=== PATIENT | female | born 1955 | race Caucasian/White ===

== ENCOUNTER 2023-03-11 10:59 | Outpatient (OUT) | payer MEDICARE, MEDICAID, SELFPAY ==
[2023-03-11 11:31] LABS: Basophils Absolute Auto 0.1 10^3/uL (0.0-0.1); Basophils Percent Auto 1.8 % (0.2-2.0); Eosinophils Absolute Auto 0.2 10^3/uL (0.0-0.7); Eosinophils Percent Auto 3.6 % (0.9-7.0); Hematocrit 41.5 % (36.0-48.0); Hemoglobin 13.2 g/dL (12.0-16.0); Immature Granulocytes Abs Auto 0.01 10^3/uL (0.00-0.03); Immature Granulocytes Pct Auto 0.2 % (0.0-0.5); Lymphocytes Absolute Auto 1.4 10^3/uL (1.2-3.8); Lymphocytes Percent Auto 27.4 % (20.5-60.0); Mean Corpuscular HGB Conc 31.8 g/dL (29.9-35.2); Mean Corpuscular Hemoglobin 29.9 pg (26.7-34.0); Mean Corpuscular Volume 93.9 fL (81.0-99.0); Mean Platelet Volume 9.5 fL (9.5-13.5); Monocytes Absolute Auto 0.4 10^3/uL (0.3-0.8); Monocytes Percent Auto 7.7 % (1.7-12.0); Neutrophils Absolute Auto 2.9 10^3/uL (1.4-6.5); Neutrophils Percent Auto 59.3 % (43.0-75.0); Platelet Count 275 10^3/uL (150-450); Red Blood Count 4.42 10^6/uL (4.20-5.40); Red Cell Distribution Width 12.8 % (11.0-15.0)
[2023-03-11 13:57] LABS: Estimated Average Glucose 105 mg/dL; Glycohemoglobin A1C 5.3 % (4.5-6.2)
[2023-03-11 14:18] LABS: Alanine Aminotransferase 15 U/L (14-59); Albumin Globulin Ratio 0.9; Albumin Level 3.8 g/dL (3.4-5.0); Alkaline Phosphatase 48 U/L (46-116); Anion Gap 14.5; Aspartate Amino Transferase 9 U/L (15-37); BUN Creatinine Ratio 17.2; Bilirubin Total 0.7 mg/dL (0.2-1.0); Calcium 9.1 mg/dL (8.5-10.1); Carbon Dioxide 27.7 mmol/L (21.0-32.0); Chloride 102 mmol/L (98-107); Chol HDL Ratio 4.8; Cholesterol 255 mg/dL (<=200); Estimated GFR (African America >60 (>=60); Estimated GFR (Non-African Ame >60 (>=60); Free T3 2.72 pg/mL (2.18-3.98); Globulin 4.1 g/dL; Glucose 102 mg/dL (74-106); HDL Cholesterol 53 mg/dL (40-60); Potassium 4.2 mmol/L (3.5-5.1); Sodium 140 mmol/L (136-145); Thyroid Stimulating Hormone 4.487 uIU/mL (0.358-3.740); Total Protein 7.9 g/dL (6.4-8.2); Triglycerides 183 mg/dL (<=150); VLDL CHOLESTEROL 36.6 mg/dL
== END 2023-03-11 11:00 | disposition home or self-care (01) ==
LOC: LAB 10:59
PROVIDERS: PCP Family Medicine; Visit Provider Family Medicine
DX: E03.9 Hypothyroidism, unspecified (principal); E78.5 Hyperlipidemia, unspecified; I10 Essential (primary) hypertension; R73.09 Other abnormal glucose; Z12.12 Encounter for screening for malignant neoplasm of rectum; D64.9 Anemia, unspecified; E55.9 Vitamin D deficiency, unspecified
CPT/HCPCS: 36415; 80053; 80061; 82306; 83036; 83525; 83540; 84436; 84443; 84481; 85025

== ENCOUNTER 2023-03-11 13:54 | Outpatient (OUT) | payer MEDICARE, MEDICAID, SELFPAY ==
--- NOTE | 2023-03-11 | MM_ITS ---
Patient Name: AKUA PEREZ MR#: [id number] : 1955 Exam Date: 03/11/2023 Ordering Doctor: DR Tahir Menjivar . RADIOLOGY REPORT PROCEDURE: MM TOMOSYNTHESIS SCREENING BI COMPARISON: MG MAMM SCREEN 3D BEBETO CAD, 04/02/2021. MG MAMM SCREEN BEBETO W CAD, 01/26/2020. MG MAMM SCREEN BEBETO W CAD, 07/17/2018. MAMMO BEBETO SCREEN, 06/22/2003. INDICATIONS: Screening for malignant neoplasm Calculator Name NCI Breast Cancer Risk Assessment Tool 5 Year Breast Cancer Risk 1.60% Lifetime Breast Cancer Risk 5.70% Personal Breast Cancer No Personal Ovarian Cancer No Treatments None Family Cancers None LOCATION: [facility] BREAST COMPOSITION: Heterogeneously dense,which may obscure small masses. FINDINGS: DIAGNOSTIC CATEGORY 2--BENIGN FINDING: RIGHT BREAST: No significant suspicious finding. Scattered benign-appearing calcifications are present. Stable chronic asymmetries. No significant change has occurred. LEFT BREAST: No significant suspicious finding. Scattered benign-appearing calcifications are present. Stable chronic asymmetries. No significant change has occurred. RECOMMENDATIONS: ROUTINE MAMMOGRAM AND CLINICAL EVALUATION IN 12 MONTHS. PLEASE NOTE: A NORMAL MAMMOGRAM DOES NOT EXCLUDE THE POSSIBILITY OF BREAST CANCER. A CLINICALLY SUSPICIOUS PALPABLE LUMP SHOULD BE BIOPSIED. Dictated by: Nestor Gomez M.D. on 03/12/2023 at 13:50 Approved by: Nestor Gomez M.D. on 03/12/2023 at 13:54
== END 2023-03-11 13:55 | disposition home or self-care (01) ==
LOC: MAMMO 13:54
PROVIDERS: PCP Family Medicine; Visit Provider Family Medicine
DX: Z12.31 Encounter for screening mammogram for malignant neoplasm of breast (principal)
CPT/HCPCS: 77063; 77067

== ENCOUNTER 2024-03-02 10:40 | Outpatient (OUT) | payer MEDICARE, SELFPAY ==
[2024-03-02 11:05] LABS: Basophils Absolute Auto 0.1 10^3/uL (0.0-0.1); Basophils Percent Auto 1.6 % (0.2-2.0); Eosinophils Absolute Auto 0.1 10^3/uL (0.0-0.7); Eosinophils Percent Auto 2.1 % (0.9-7.0); Hemoglobin 11.7 g/dL (12.0-16.0); Immature Granulocytes Abs Auto 0.02 10^3/uL (0.00-0.03); Immature Granulocytes Pct Auto 0.3 % (0.0-0.5); Lymphocytes Absolute Auto 1.3 10^3/uL (1.2-3.8); Lymphocytes Percent Auto 20.3 % (20.5-60.0); Mean Corpuscular HGB Conc 29.3 g/dL (29.9-35.2); Mean Corpuscular Hemoglobin 23.6 pg (26.7-34.0); Mean Corpuscular Volume 80.8 fL (81.0-99.0); Mean Platelet Volume 8.2 fL (9.5-13.5); Monocytes Absolute Auto 0.5 10^3/uL (0.3-0.8); Monocytes Percent Auto 7.1 % (1.7-12.0); Neutrophils Absolute Auto 4.3 10^3/uL (1.4-6.5); Neutrophils Percent Auto 68.6 % (43.0-75.0); Platelet Count 416 10^3/uL (150-450); Red Blood Count 4.95 10^6/uL (4.20-5.40); Red Cell Distribution Width 16.7 % (11.0-15.0); White Blood Count 6.3 10^3/uL (4.0-11.0)
[2024-03-02 11:43] LABS: Estimated Average Glucose 108 mg/dL; Glycohemoglobin A1C 5.4 % (4.5-6.2)
[2024-03-02 12:43] LABS: Alanine Aminotransferase 10 U/L (14-59); Albumin Globulin Ratio 0.5; Albumin Level 2.9 g/dL (3.4-5.0); Alkaline Phosphatase 70 U/L (46-116); Anion Gap 16.9; Aspartate Amino Transferase 11 U/L (15-37); Bilirubin Total 0.7 mg/dL (0.2-1.0); Calcium 9.6 mg/dL (8.5-10.1); Carbon Dioxide 26.3 mmol/L (21.0-32.0); Chloride 102 mmol/L (98-107); Chol HDL Ratio 3.6; Cholesterol 181 mg/dL (<=200); Estimated GFR (African America >60 (>=60 mL/min/1.73m^2); Estimated GFR (Non-African Ame 50 (>=60 mL/min/1.73m^2); Free T3 1.69 pg/mL (2.18-3.98); Globulin 5.5 g/dL; Glucose 99 mg/dL (74-106); HDL Cholesterol 50 mg/dL (40-60); Potassium 4.2 mmol/L (3.5-5.1); Sodium 141 mmol/L (136-145); Thyroid Stimulating Hormone 1.647 uIU/mL (0.358-3.740); Total Protein 8.4 g/dL (6.4-8.2); Triglycerides 75 mg/dL (<=150)
== END 2024-03-02 10:41 | disposition home or self-care (01) ==
LOC: LAB 10:41
PROVIDERS: PCP Family Medicine; Visit Provider Family Medicine
DX: E03.9 Hypothyroidism, unspecified (principal); E78.5 Hyperlipidemia, unspecified; I10 Essential (primary) hypertension; E55.9 Vitamin D deficiency, unspecified; R73.09 Other abnormal glucose; Z12.12 Encounter for screening for malignant neoplasm of rectum; D64.9 Anemia, unspecified
CPT/HCPCS: 36415; 80053; 80061; 82306; 83036; 83540; 83735; 84436; 84443; 84481; 85025

== ENCOUNTER 2024-03-12 09:51 | Outpatient (OUT) | payer MEDICARE, SELFPAY ==
--- NOTE | 2024-03-12 09:54 | MM_ITS ---
Patient Name: AKUA PEREZ MR#: [id number] : 1955 Exam Date: 03/12/2024 Ordering Doctor: DR Tahir Menjivar . RADIOLOGY REPORT PROCEDURE: MM TOMOSYNTHESIS SCREENING BI COMPARISON: MM TOMOSYNTHESIS SCREENING BI, 03/11/2023. MG MAMM SCREEN 3D BEBETO CAD, 04/02/2021. MG MAMM SCREEN BEBETO W CAD, 01/26/2020. MAMMO BEBETO SCREEN, 06/22/2003. INDICATIONS: Screening Calculator Name NCI Breast Cancer Risk Assessment Tool 5 Year Breast Cancer Risk 4.10% Lifetime Breast Cancer Risk 13.50% Personal Breast Cancer No Personal Ovarian Cancer No Treatments None Family Cancers Sister with breast cancer at age 57. LOCATION: [facility] BREAST COMPOSITION: The breasts are heterogeneously dense,which may obscure small masses. FINDINGS: DIAGNOSTIC CATEGORY 2--BENIGN FINDING: RIGHT BREAST: No significant suspicious finding. Scattered benign-appearing calcifications are present. No significant change has occurred. LEFT BREAST: No significant suspicious finding. Scattered benign-appearing calcifications are present. No significant change has occurred. RECOMMENDATIONS: ROUTINE MAMMOGRAM AND CLINICAL EVALUATION IN 12 MONTHS. PLEASE NOTE: A NORMAL MAMMOGRAM DOES NOT EXCLUDE THE POSSIBILITY OF BREAST CANCER. A CLINICALLY SUSPICIOUS PALPABLE LUMP SHOULD BE BIOPSIED. Dictated by: Nestor Gomez M.D. on 03/12/2024 at 12:00 Approved by: Nestor Gomez M.D. on 03/12/2024 at 12:04
--- OUTSIDE RECORDS SUMMARY | 2024-03-12 10:07 | XMS_ITS | CCD ---
Author Organization [facility] Care Team Providers Care Cleaning Porter Name Role Phone DR CARLA NESBITT Consulting Unavailable DELICIA, DR AGUIRRE Primary Care Unavailable DELICIA, DR AGUIRRE Admitting Unavailable DELICIA, DR AGUIRRE Attending Unavailable WEST, DR RUPA Lux Consulting Unavailable DELICIA, DR AGUIRRE Consulting Unavailable DELICIA, DR AGUIRRE Primary Care Unavailable DELICIA, DR AGUIRRE Admitting Unavailable DELICIA, DR AGUIRRE Attending Unavailable Problems Problem Classification Problem Date Documented Da te Episodic/Chronic Acute bronchitis (1 source) Acute bronchitis, unspecified; Translations: [ACUTE BRONCHITIS UNSPECIFIED] Onset: 03-04-2022 Episodic Deficiency and other anemia (1 source) Anemia, unspecified; Translations: [ANEMIA UNSPECIFIED] Onset: 03-04-2022 Episodic Diabetes mellitus without complication (1 source) Other abnormal glucose; Translations: [OTHER ABNORMAL GLUCOSE] Onset: 03-04-2022 Episodic Disorders of lipid metabolism (1 source) Hyperlipidemia, unspecified; Translations: [HYPERLIPIDEMIA UNSPECIFIED] Onset: 03-04-2022 Chronic Essential hypertension (1 source) Essential (primary) hypertension; Translations: [ESSENTIAL PRIMARY HYPERTENSION] Onset: 03-04-2022 Chronic Nutritional deficiencies (1 source) Vitamin D deficiency, unspecified; Translations: [VITAMIN D DEFICIENCY UNSPECIFIED] Onset: 03-04-2022 Chronic Other screening for suspected conditions (not mental disorders or infectious disease) (5 sources) Encounter for screening for malignant neoplasm of rectum; Translations: [Encounter for screening mammogram for malignant neoplasm of breast] Onset: 04-02-2021 Episodic Thyroid disorders (4 sources) Hypothyroidism, unspecified; Translations: [HYPOTHYROIDISM UNSPECIFIED] Onset: 02-27-2022 Chronic Results Test Name Value Interpretation Reference Range Facility INSULINon 02-28-2022 Insulin 8.4 uIU/mL Normal 2.6-24.9 [facility] Comment on above: Performed By: #### I NSULIN #### [facility] [address] [address] [address] Abraham Harris CBC AUTO DIFFon 02-27-2022 BASO # 0.1 103/ul Normal 0.0-0.1 [facility] Comment on above: Performed By: #### C BC #### [facility] [address] [place] [address] Dr. Abraham Harris Basophils/100 WBC (Bld) 1.7 % Normal 0.2-2.0 [facility] Comment on above: Performed By: #### C BC #### [facility] [address] [place] [address] Dr. Abraham Harris EO # 0.2 103/ul Normal 0.0-0.7 [facility] Comment on above: Performed By: #### C BC #### [facility] [address] [place] [address] Dr. Abraham Harris Eosinophils/100 WBC (Bld) 3.1 % Normal 0.9-7.0 [facility] Comment on above: Performed By: #### C BC #### [facility] [address] [place] [address] Dr. Abraham Harris Erythrocyte distribution width (RBC) [Ratio] 12.9 % Normal 11.0-15.0 [facility] Comment on above: Performed By: #### C BC #### [facility] [address] [place] [address] Dr. Abraham Harris Hematocrit (Bld) [Volume fraction] 42.3 % Normal 36.0-48.0 [facility] Comment on above: Performed By: #### C BC #### [facility] [address] [place] [address] Dr. Abraham Harris Hemoglobin (Bld) [Mass/Vol] 13.8 g/dL Normal 12.0-16.0 [facility] Comment on above: Performed By: #### C BC #### [facility] [address] [place] [address] Dr. Abraham Harris IG # 0.02 10e3/ul Normal 0.00-0.03 [facility] Comment on above: Performed By: #### C BC #### [facility] [address] [place] [address] Dr. Abraham Harris IG % 0.4 % Normal 0.0-0.5 [facility] Comment on above: Performed By: #### C BC #### [facility] [address] [place] [address] Dr. Abraham Harris LYMPH # 1.3 103/ul Normal 1.2-3.8 [facility] Comment on above: Performed By: #### C BC #### [facility] [address] [place] [address] Dr. Abraham Harris Lymphocytes/100 WBC (Bld) 25.2 % Normal 20.5-60.0 [facility] Comment on above: Performed By: #### C BC #### [facility] [address] [place] [address] Dr. Abraham Harris MANUAL DIFF REQ NO Normal [facility] Comment on above: Performed By: #### C BC #### [facility] [address] [place] [address] Dr. Abraham Harris MCH (RBC) [Entitic mass] 29.6 pg Normal 26.7-34.0 [facility] Comment on above: Performed By: #### C BC #### [facility] [address] [place] [address] Dr. Abraham Harris MCHC (RBC) [Mass/Vol] 32.6 g/dL Normal 29.9-35.2 [facility] Comment on above: Performed By: #### C BC #### [facility] [address] [place] [address] Dr. Abraham Harris MCV (RBC) [Entitic vol] 90.8 fL Normal 81.0-99.0 [facility] Comment on above: Performed By: #### C BC #### [facility] [address] [place] [address] Dr. Abraham Harris MONO # 0.3 103/ul Normal 0.3-0.8 [facility] Comment on above: Performed By: #### C BC #### [facility] [address] [place] [address] Dr. Abraham Harris Monocytes/100 WBC (Bld) 5.0 % Normal 1.7-12.0 [facility] Comment on above: Performed By: #### C BC #### [facility] [address] [place] [address] Dr. Abraham Harris NEUT # 3.4 103/ul Normal 1.4-6.5 [facility] Comment on above: Performed By: #### C BC #### [facility] [address] [place] [address] Dr. Abraham Harris Neutrophils/100 WBC (Bld) 64.6 % Normal 43.0-75.0 [facility] Comment on above: Performed By: #### C BC #### [facility] [address] [place] [address] Dr. Abraham Harris Platelet mean volume (Bld) [Entitic vol] 9.9 fL Normal 9.5-13.5 [facility] Comment on above: Performed By: #### C BC #### [facility] [address] [place] [address] Dr. Abraham Harris PLT 229 103/ul Normal 150-450 [facility] Comment on above: Performed By: #### C BC #### [facility] [address] [place] [address] Dr. Abraham Harris RBC 4.66 106/ul Normal 4.20-5.40 [facility] Comment on above: Performed By: #### C BC #### [facility] [address] [place] [address] Dr. Abraham Harris WBC 5.2 103/ul Normal 4.0-11.0 [facility] Comment on above: Performed By: #### C BC #### [facility] [address] [place] [address] Dr. Abraham Harris FREE THYROXINE INDEX T7on FTI 3.64 Normal 1.30-4.50 [facility] Comment on above: Performed By: #### L IPID, CMP, TSH, T7 #### [facility] [address] [place] [address] Dr. Abraham Harris T3U 36.0 % Normal 30.0-39.0 [facility] Comment on above: Performed By: #### L IPID, CMP, TSH, T7 #### [facility] [address] [address] [address] Abraham Harris T4 [Mass/Vol] 10.10 ug/dL Normal 4.80-13.[address] [facility] Comment on above: Performed By: #### L IPID, CMP, TSH, T7 #### [facility] [address] [address] [address] Abraham Harris GLYCOHEMOGLOBIN A1Con 2021 ADA RECOMMENDATION SEE BELOW Normal [facility] Comment on above: Result Comment: ADA RECOMMENDED LIMIT 4.0 - 6.0 ADA THERAPEUTIC TARGET < 7.0 ACTION SUGGESTED > 7.0 Performed By: #### A 1C #### [facility] [address] [address] [address] Abraham Harris Glucose [Mass/Vol] 111 mg/dL Normal [facility] Comment on above: Performed By: #### A 1C #### [facility] [address] [address] [address] Abraham Harris HbA1c (Bld) [Mass fraction] 5.5 % Normal 4.5-6.2 [facility] Comment on above: Performed By: #### A 1C #### [facility] [address] [address] [address] Abraham Harris IRONon 02-27-2022 Iron [Mass/Vol] 82.0 ug/dL Normal 50.0-170.0 [facility] Comment on above: Performed By: #### I MARCELLUS VITAD #### [facility] [address] [address] [address] Abraham Harris LIPID PROFILEon 02-27-2022 CHOL-HDL RATIO NORM SEE BELOW Normal [facility] Comment on above: Result Comment: 3.3 - 4.4 LOW RISK 4.4 - 7.1 AVERAGE RISK 7.1 - 11.0 MODERATE RISK >11.0 HIGH RISK Performed By: #### L IPID, CMP, TSH, T7 #### [facility] [address] [address] [address] Abraham Harris Cholesterol [Mass/Vol] 271 mg/dL Critically high <=200 [facility] Comment on above: Performed By: #### L IPID, CMP, TSH, T7 #### [facility] [address] [address] [address] Abraham Harris Cholesterol in HDL [Mass/Vol] 65 mg/dL Critically high 40-60 [facility] Comment on above: Performed By: #### L IPID, CMP, TSH, T7 #### [facility] [address] [address] [address] Abraham Harris Cholesterol in LDL [Mass/Vol] 177.4 mg/dL Normal [facility] Comment on above: Performed By: #### L IPID, CMP, TSH, T7 #### [facility] [address] [address] [address] Abraham Harris Cholesterol.total/Cho lesterol in HDL [Mass ratio] 4.2 {ratio} Normal [facility] Comment on above: Performed By: #### L IPID, CMP, TSH, T7 #### [facility] [address] [address] [address] Abraham Harris HDL NORMAL > or = 60 mg/dl - LO W CARDIOVASCULAR RISK <40 mg/dl - HIGH CARDIOVASCULAR RISK Normal [facility] Comment on above: Performed By: #### L IPID, CMP, TSH, T7 #### [facility] [address] [address] [address] Abraham Harris LDL CALC NORMAL SEE BELOW Normal [facility] Comment on above: Result Comment: <100 mg/dl OPTIMAL 100 - 129 mg/dl NEAR OR ABOVE OPTIMAL 130 - 159 mg/dl BORDERLINE HIGH 160 - 189 mg/dl HIGH >190 mg/dl VERY HIGH Performed By: #### L IPID, CMP, TSH, T7 #### [facility] [address] [address] [address] Abraham Harris Triglyceride [Mass/Vol] 143 mg/dL Normal <=150 [facility] Comment on above: Performed By: #### L IPID, CMP, TSH, T7 #### [facility] [address] [place] [address] Dr. Abraham Harris VLDL CALC 28.6 mg/dL Normal [facility] Comment on above: Performed By: #### L IPID, CMP, TSH, T7 #### [facility] [address] [place] [address] Dr. Abarham Harris PROF 14(COMP METB)on 022 Albumin [Mass/Vol] 3.9 g/dL Normal 3.4-5.0 [facility] Comment on above: Performed By: #### L IPID, CMP, TSH, T7 #### [facility] [address] [place] [address] Dr. Abraham Harris Albumin/Globulin [Mass ratio] 1.0 {ratio} Normal [facility] Comment on above: Performed By: #### L IPID, CMP, TSH, T7 #### [facility] [address] [place] [address] Dr. Abraham Harris ALP [Catalytic activity/Vol] 46 U/L Normal 46-116 [facility] Comment on above: Performed By: #### L IPID, CMP, TSH, T7 #### [facility] [address] [place] [address] Dr. Abraham Harris ALT [Catalytic activity/Vol] 14 U/L Normal 14-59 [facility] Comment on above: Performed By: #### L IPID, CMP, TSH, T7 #### [facility] [address] [place] [address] Dr. Abraham Harris Anion gap [Moles/Vol] 11.3 mmol/L Normal [facility] Comment on above: Performed By: #### L IPID, CMP, TSH, T7 #### [facility] [address] [place] [address] Dr. Abraham Harris AST [Catalytic activity/Vol] 12 U/L Critically low 15-37 [facility] Comment on above: Performed By: #### L IPID, CMP, TSH, T7 #### [facility] [address] [place] [address] Dr. Abraham Harris Bilirubin [Mass/Vol] 1.0 mg/dL Normal 0.2-1.0 [facility] Comment on above: Performed By: #### L IPID, CMP, TSH, T7 #### [facility] [address] [address] [address] Abraham Harris Calcium [Mass/Vol] 9.4 mg/dL Normal 8.5-10.1 [facility] Comment on above: Performed By: #### L IPID, CMP, TSH, T7 #### [facility] [address] [place] [address] Dr. Abraham Harris Chloride [Moles/Vol] 105 mmol/L Normal 98-107 [facility] Comment on above: Performed By: #### L IPID, CMP, TSH, T7 #### [facility] [address] [place] [address] Dr. Abraham Harris CO2 [Moles/Vol] 28.0 mmol/L Normal 21.0-32.0 [facility] Comment on above: Performed By: #### L IPID, CMP, TSH, T7 #### [facility] [address] [place] [address] Dr. Abraham Harris Creatinine [Mass/Vol] 0.85 mg/dL Normal 0.55-1.02 [facility] Comment on above: Performed By: #### L IPID, CMP, TSH, T7 #### [facility] [address] [place] [address] Dr. Abraham Harris EGFR-AF CHADIAN >60 Normal >=60 [facility] Comment on above: Performed By: #### L IPID, CMP, TSH, T7 #### [facility] [address] [place] [address] Dr. Abraham Harris EGFR-NON AF CHADIAN >60 Normal >=60 [facility] Comment on above: Performed By: #### L IPID, CMP, TSH, T7 #### [facility] [address] [place] [address] Dr. Abraham Harris Globulin (S) [Mass/Vol] 4.0 g/dL Normal [facility] Comment on above: Performed By: #### L IPID, CMP, TSH, T7 #### [facility] [address] [place] [address] Dr. Abraham Harris Glucose [Mass/Vol] 106 mg/dL Normal 74-106 [facility] Comment on above: Performed By: #### L IPID, CMP, TSH, T7 #### [facility] [address] [place] [address] Dr. Abraham Harris Potassium [Moles/Vol] 4.3 mmol/L Normal 3.5-5.1 [facility] Comment on above: Performed By: #### L IPID, CMP, TSH, T7 #### [facility] [address] [place] [address] Dr. Abraham Harris Protein [Mass/Vol] 7.9 g/dL Normal 6.4-8.2 [facility] Comment on above: Performed By: #### L IPID, CMP, TSH, T7 #### [facility] [address] [place] [address] Dr. Abraham Harris Sodium [Moles/Vol] 140 mmol/L Normal 136-145 [facility] Comment on above: Performed By: #### L IPID, CMP, TSH, T7 #### [facility] [address] [place] [address] Dr. Abraham Harris Urea nitrogen [Mass/Vol] 13.0 mg/dL Normal 7.0-18.0 [facility] Comment on above: Performed By: #### L IPID, CMP, TSH, T7 #### [facility] [address] [place] [address] Dr. Abraham Harris Urea nitrogen/Creatinine [Mass ratio] 15.3 mg/mg Normal [facility] Comment on above: Performed By: #### L IPID, CMP, TSH, T7 #### [facility] [address] [place] [address] Dr. Abraham Harris TSHon 02-27-2022 TSH 2.006 uIU/mL Normal 0.358-3.740 [facility] Comment on above: Performed By: #### L IPID, CMP, TSH, T7 #### [facility] [address] [address] [address] Abraham Harris VITAMIN D 25 OHon 02-27-2022 VIT D 25-OH 69.8 ng/mL Normal [facility] Comment on above: Performed By: #### I MARCELLUS, VITAD #### [facility] [address] [place], [place] [address] Dr. Abraham Harris VIT D RANGES SEE BELOW Normal [facility] Comment on above: Result Comment: <20 ng/mL Vit D deficient 20 - <30 ng/mL Vit D insufficient 30 - 100 ng/mL Vit D sufficient >100 ng/mL Potential Toxicity Performed By: #### I MARCELLUS, VITAD #### [facility] [address] [address] [address] Abraham Harris MG MAMM SCREEN 3D BEBETO CADon 04-02-2021 MG MAMM SCREEN 3D BEBETO CAD Patient: AKUA PEREZ Exam Date: 04/02/2021 : 1955 Gender:F Ordering : DR CARLA NESBITT . Admission #: [id number] Family : Order #: [id number] CLICK HERE TO VIEW EXAM RADIOLOGY REPORT PROCEDURE: MAMMOGRAM SCREENING 3D BILATERAL CAD COMPARISON: MG MAMM SCREEN BEBETO W CAD, 01/26/2020. MG MAMM SCREEN BEBETO W CAD, 07/17/2018. INDICATIONS: Screening mammography Calculator Name NCI Breast Cancer Risk Assessment Tool 5 Year Breast Cancer Risk 1.50% Lifetime Breast Cancer Risk 6.10% Personal Breast Cancer No Personal Ovarian Cancer No Treatments None Family Cancers None LOCATION: [facility] BREAST COMPOSITION: Heterogeneously dense,which may obscure small masses. FINDINGS: DIAGNOSTIC CATEGORY 2--BENIGN FINDING. NO CHANGE FROM COMPARISON. Scattered benign-appearing calcifications are present. Scattered benign-appearing lymph nodes are present. RIGHT BREAST: No significant suspicious finding. Stable focal asymmetry upper outer quadrant. LEFT BREAST: No significant suspicious finding. RECOMMENDATIONS: ROUTINE MAMMOGRAM AND CLINICAL EVALUATION IN 12 MONTHS. PLEASE NOTE: A NORMAL MAMMOGRAM DOES NOT EXCLUDE THE POSSIBILITY OF BREAST CANCER. A CLINICALLY SUSPICIOUS PALPABLE LUMP SHOULD BE BIOPSIED. Dictated by: Rupa Yost MD on 04/02/2021 at 13:59 Approved by: Rupa Yost MD on 04/02/2021 at 14:01 Normal [facility] Encounters Encounter Date Encounter Type Care Provider Facility Start: 02-27-2022 End: 02-28-2022 ambulatory CARLA NESBITT Facility:[facility] Start: 04-02-2021 End: 04-03-[address] CARLA NESBITT Facility:[facility] Payers Date Payer Category Payer Medicaid [id number] 1958 Medicare [id number] 1958 Unknown [id number] 1955 Unknown [id number] 1955 Unknown [id number] Summary Purpose Family History No Family History Records Found Advance Directives No Advanced Directives Records Found Additional Source Comments INFORMATION SOURCE (unrecogn ized section and content) DATE CREATED AUTHOR 03/04/2022 [facility] FOR RECORDS PERTAINING TO PATIENTS WHO ARE OR HAVE BEEN ENROLLED IN A CHEMICAL DEPENDENCY/SUBSTANCEABUSE PROGRAM, SOME INFORMATION MAY BE OMITTED. This clinical summary was aggregated from multiple sources. Caution should be exercised in using it in the provision of clinical care. This summary normalizes information from multiple sources, and as a consequence, information in this document may materially change the coding, format and clinical context of patient data. In addition, data may be omitted in some cases. CLINICAL DECISIONS SHOULD BE BASED ON THE PRIMARY CLINICAL RECORDS. [facility] [employer] [facility]. provides no warranty or guarantee of the accuracy or completeness of information in this document.
== END 2024-03-12 09:52 | disposition home or self-care (01) ==
LOC: MAMMO 09:51
PROVIDERS: PCP Family Medicine; Visit Provider Family Medicine
DX: Z12.31 Encounter for screening mammogram for malignant neoplasm of breast (principal); Z80.3 Family history of malignant neoplasm of breast
CPT/HCPCS: 77063; 77067

== ENCOUNTER 2024-05-06 14:57 | Outpatient (REF) | payer MEDICARE, SELFPAY ==
--- OUTSIDE RECORDS SUMMARY | 2024-05-07 15:15 | XMS_ITS | CCD ---
Author Organization [facility] Care Team Providers Care Quantitative Software Engineer Name Role Phone DR CARLA NESBITT Consulting [...] 02-28-2022 Insulin 8.4 uIU/mL Normal 2.6-24.9 [facility] Comment on above: Performed By: #### I NSULIN #### [facility] [address] [address] [address] Abraham Harris CBC AUTO DIFFon 02-27-2022 BASO # 0.1 103/ul Normal 0.0-0.1 [facility] Comment on above: Performed By: #### C BC #### [facility] [address] [place] [address] Dr. Abraham Harris Basophils/100 WBC (Bld) 1.7 % Normal 0.2-2.0 [facility] Comment on above: Performed By: #### C BC #### [facility] [address] [place] [address] Dr. Abraham Harris EO # 0.2 103/ul Normal 0.0-0.7 [facility] Comment on above: Performed By: #### C BC #### [facility] [address] [place] [address] Dr. Abraham Harris Eosinophils/100 WBC (Bld) 3.1 % Normal 0.9-7.0 [facility] Comment on above: Performed By: #### C BC #### [facility] [address] [place] [address] Dr. Abraham Harris Erythrocyte distribution width (RBC) [Ratio] 12.9 % Normal 11.0-15.0 [facility] Comment on above: Performed By: #### C BC #### [facility] [address] [place] [address] Dr. Abraham Harris Hematocrit (Bld) [Volume fraction] 42.3 % Normal 36.0-48.0 [facility] Comment on above: Performed By: #### C BC #### [facility] [address] [place] [address] Dr. Abraham Harris Hemoglobin (Bld) [Mass/Vol] 13.8 g/dL Normal 12.0-16.0 [facility] Comment on above: Performed By: #### C BC #### [facility] [address] [place] [address] Dr. Arbaham Harris IG # 0.02 10e3/ul Normal 0.00-0.03 [facility] Comment on above: Performed By: #### C BC #### [facility] [address] [place] [address] Dr. Abraham Harris IG % 0.4 % Normal 0.0-0.5 [facility] Comment on above: Performed By: #### C BC #### [facility] [address] [place] [address] Dr. Abraham Harris LYMPH # 1.3 103/ul Normal 1.2-3.8 [facility] Comment on above: Performed By: #### C BC #### [facility] [address] [place] [address] Dr. Abraham Harris Lymphocytes/100 WBC (Bld) 25.2 % Normal 20.5-60.0 [facility] Comment on above: Performed By: #### C BC #### [facility] [address] [place] [address] Dr. Abraham Harris MANUAL DIFF REQ NO Normal [facility] Comment on above: Performed By: #### C BC #### [facility] [address] [place] [address] Dr. Abraham Harris MCH (RBC) [Entitic mass] 29.6 pg Normal 26.7-34.0 [facility] Comment on above: Performed By: #### C BC #### [facility] [address] [place] [address] Dr. Abraham Harris MCHC (RBC) [Mass/Vol] 32.6 g/dL Normal 29.9-35.2 [facility] Comment on above: Performed By: #### C BC #### [facility] [address] [place] [address] Dr. Abraham Harris MCV (RBC) [Entitic vol] 90.8 fL Normal 81.0-99.0 [facility] Comment on above: Performed By: #### C BC #### [facility] [address] [place] [address] Dr. Abraham Harris MONO # 0.3 103/ul Normal 0.3-0.8 [facility] Comment on above: Performed By: #### C BC #### [facility] [address] [place] [address] Dr. Abraham Harris Monocytes/100 WBC (Bld) 5.0 % Normal 1.7-12.0 [facility] Comment on above: Performed By: #### C BC #### [facility] [address] [place] [address] Dr. Abraham Harris NEUT # 3.4 103/ul Normal 1.4-6.5 [facility] Comment on above: Performed By: #### C BC #### [facility] [address] [place] [address] Dr. Abraham Harris Neutrophils/100 WBC (Bld) 64.6 % Normal 43.0-75.0 [facility] Comment on above: Performed By: #### C BC #### [facility] [address] [place] [address] Dr. Abraham Harris Platelet mean volume (Bld) [Entitic vol] 9.9 fL Normal 9.5-13.5 [facility] Comment on above: Performed By: #### C BC #### [facility] [address] [place] [address] Dr. Abraham Harris PLT 229 103/ul Normal 150-450 [facility] Comment on above: Performed By: #### C BC #### [facility] [address] [place] [address] Dr. Abraham Harris RBC 4.66 106/ul Normal 4.20-5.40 [facility] Comment on above: Performed By: #### C BC #### [facility] [address] [place] [address] Dr. Abraham Harris WBC 5.2 103/ul Normal 4.0-11.0 [facility] Comment on above: Performed By: #### C BC #### [facility] [address] [place] [address] Dr. Abraham Harris FREE THYROXINE INDEX T7on FTI 3.64 Normal 1.30-4.50 [facility] Comment on above: Performed By: #### L IPID, CMP, TSH, T7 #### [facility] [address] [place] [address] Dr. Abraham Harris T3U 36.0 % Normal 30.0-39.0 [facility] Comment on above: Performed By: #### L IPID, CMP, TSH, T7 #### [facility] [address] [address] [address] Abraham Harris T4 [Mass/Vol] 10.10 ug/dL Normal 4.80-13.90 [facility] Comment on above: Performed By: #### L IPID, CMP, TSH, T7 #### [facility] [address] [address] [address] Abraham Harris GLYCOHEMOGLOBIN A1Con 2021 ADA RECOMMENDATION SEE BELOW Normal [facility] Comment on above: Result Comment: ADA RECOMMENDED LIMIT 4.0 - 6.0 ADA THERAPEUTIC TARGET < 7.0 ACTION SUGGESTED > 7.0 Performed By: #### A 1C #### [facility] [address] [address] [address] Abraham Harris Glucose [Mass/Vol] 111 mg/dL Normal [facility] Comment on above: Performed By: #### A 1C #### [facility] [address] [address] [address] Abraham Harris HbA1c (Bld) [Mass fraction] 5.5 % Normal 4.5-6.2 [facility] Comment on above: Performed By: #### A 1C #### [facility] [address] [address] [address] Abraham Harris IRONon 02-27-2022 Iron [Mass/Vol] 82.0 ug/dL Normal 50.0-170.0 [facility] Comment on above: Performed By: #### I MARCELLUS VITAD #### [facility] [address] [address] [address] Abraham Harris LIPID PROFILEon 02-27-2022 CHOL-HDL RATIO NORM SEE BELOW Normal [facility] Comment on above: Result Comment: 3.3 - 4.4 LOW RISK 4.4 - 7.1 AVERAGE RISK 7.1 - 11.0 MODERATE RISK >11.0 HIGH RISK Performed By: #### L IPID, CMP, TSH, T7 #### [facility] [address] [address] [address] Abraham Harris Cholesterol [Mass/Vol] 271 mg/dL Critically high <=200 [facility] Comment on above: Performed By: #### L IPID, CMP, TSH, T7 #### [facility] [address] [address] [address] Abraham Harris Cholesterol in HDL [Mass/Vol] 65 mg/dL Critically high 40-60 [facility] Comment on above: Performed By: #### L IPID, CMP, TSH, T7 #### [facility] [address] [address] [address] Abraham Harris Cholesterol in LDL [Mass/Vol] 177.4 mg/dL Normal [facility] Comment on above: Performed By: #### L IPID, CMP, TSH, T7 #### [facility] [address] [address] [address] Abraham Harris Cholesterol.total/Cho lesterol in HDL [Mass ratio] 4.2 {ratio} Normal [facility] Comment on above: Performed By: #### L IPID, CMP, TSH, T7 #### [facility] [address] [address] [address] Abraham Harris HDL NORMAL > or = 60 mg/dl - LO W CARDIOVASCULAR RISK <40 mg/dl - HIGH CARDIOVASCULAR RISK Normal [facility] Comment on above: Performed By: #### L IPID, CMP, TSH, T7 #### [facility] [address] [address] [address] Abraham Harris LDL CALC NORMAL SEE BELOW Normal [facility] Comment on above: Result Comment: <100 mg/dl OPTIMAL 100 - 129 mg/dl NEAR OR ABOVE OPTIMAL 130 - 159 mg/dl BORDERLINE HIGH 160 - 189 mg/dl HIGH >190 mg/dl VERY HIGH Performed By: #### L IPID, CMP, TSH, T7 #### [facility] [address] [address] [address] Abraham Harris Triglyceride [Mass/Vol] 143 mg/dL Normal <=150 [facility] Comment on above: Performed By: #### L IPID, CMP, TSH, T7 #### [facility] [address] [place] [address] Dr. Abraham Harris VLDL CALC 28.6 mg/dL Normal [facility] Comment on above: Performed By: #### L IPID, CMP, TSH, T7 #### [facility] [address] [place] [address] Dr. Abraham Harris PROF 14(COMP METB)on 022 Albumin [Mass/Vol] 3.9 g/dL Normal 3.4-5.0 [facility] Comment on above: Performed By: #### L IPID, CMP, TSH, T7 #### [facility] [address] [place] [address] Dr. Abraham Harris Albumin/Globulin [Mass ratio] 1.0 {ratio} Normal [facility] Comment on above: Performed By: #### L IPID, CMP, TSH, T7 #### [facility] [address] [place] [address] Dr. Abraham Harris ALP [Catalytic activity/Vol] 46 U/L Normal 46-116 [facility] Comment on above: Performed By: #### L IPID, CMP, TSH, T7 #### [facility] [address] [place] [address] Dr. Abraham Harris ALT [Catalytic activity/Vol] 14 U/L Normal 14-59 [facility] Comment on above: Performed By: #### L IPID, CMP, TSH, T7 #### [facility] [address] [place] [address] Dr. Abraham Harris Anion gap [Moles/Vol] 11.3 mmol/L Normal [facility] Comment on above: Performed By: #### L IPID, CMP, TSH, T7 #### [facility] [address] [place] [address] Dr. Abraham Harris AST [Catalytic activity/Vol] 12 U/L Critically low 15-37 [facility] Comment on above: Performed By: #### L IPID, CMP, TSH, T7 #### [facility] [address] [place] [address] Dr. Abraham Harris Bilirubin [Mass/Vol] 1.0 mg/dL Normal 0.2-1.0 [facility] Comment on above: Performed By: #### L IPID, CMP, TSH, T7 #### [facility] [address] [address] [address] Abraham Harris Calcium [Mass/Vol] 9.4 mg/dL Normal 8.5-10.1 [facility] Comment on above: Performed By: #### L IPID, CMP, TSH, T7 #### [facility] [address] [place] [address] Dr. Abraham Harris Chloride [Moles/Vol] 105 mmol/L Normal 98-107 [facility] Comment on above: Performed By: #### L IPID, CMP, TSH, T7 #### [facility] [address] [place] [address] Dr. Abraham Harris CO2 [Moles/Vol] 28.0 mmol/L Normal 21.0-32.0 [facility] Comment on above: Performed By: #### L IPID, CMP, TSH, T7 #### [facility] [address] [place] [address] Dr. Abraham Harris Creatinine [Mass/Vol] 0.85 mg/dL Normal 0.55-1.02 [facility] Comment on above: Performed By: #### L IPID, CMP, TSH, T7 #### [facility] [address] [place] [address] Dr. Abraham Harris EGFR-AF GERMAN >60 Normal >=60 [facility] Comment on above: Performed By: #### L IPID, CMP, TSH, T7 #### [facility] [address] [place] [address] Dr. Abraham Harris EGFR-NON AF GERMAN >60 Normal >=60 [facility] Comment on above: Performed By: #### L IPID, CMP, TSH, T7 #### [facility] [address] [place] [address] Dr. Abraham Harris Globulin (S) [Mass/Vol] 4.0 g/dL Normal [facility] Comment on above: Performed By: #### L IPID, CMP, TSH, T7 #### [facility] [address] [place] [address] Dr. Abraham Harris Glucose [Mass/Vol] 106 mg/dL Normal 74-106 [facility] Comment on above: Performed By: #### L IPID, CMP, TSH, T7 #### [facility] [address] [place] [address] Dr. Abraham Harris Potassium [Moles/Vol] 4.3 mmol/L Normal 3.5-5.1 [facility] Comment on above: Performed By: #### L IPID, CMP, TSH, T7 #### [facility] [address] [place] [address] Dr. Abraham Harris Protein [Mass/Vol] 7.9 g/dL Normal 6.4-8.2 [facility] Comment on above: Performed By: #### L IPID, CMP, TSH, T7 #### [facility] [address] [place] [address] Dr. Abraham Harirs Sodium [Moles/Vol] 140 mmol/L Normal 136-145 [facility] Comment on above: Performed By: #### L IPID, CMP, TSH, T7 #### [facility] [address] [place] [address] Dr. Abraham Harris Urea nitrogen [Mass/Vol] 13.0 mg/dL Normal 7.0-18.0 [facility] Comment on above: Performed By: #### L IPID, CMP, TSH, T7 #### [facility] [address] [place] [address] Dr. Abraham Harris Urea nitrogen/Creatinine [Mass ratio] 15.3 mg/mg Normal [facility] Comment on above: Performed By: #### L IPID, CMP, TSH, T7 #### [facility] [address] [place] [address] Dr. Abraham Harris TSHon 02-27-2022 TSH 2.006 uIU/mL Normal 0.358-3.740 [facility] Comment on above: Performed By: #### L IPID, CMP, TSH, T7 #### [facility] [address] [address] [address] Abraham Harris VITAMIN D 25 OHon 02-27-2022 VIT D 25-OH 69.8 ng/mL Normal [facility] Comment on above: Performed By: #### I MARCELLUS, VITAD #### [facility] [address] [place], [place] [address] Dr. Abraham Harris VIT D RANGES SEE BELOW Normal [facility] Comment on above: Result Comment: <20 ng/mL Vit D deficient 20 - <30 ng/mL Vit D insufficient 30 - 100 ng/mL Vit D sufficient >100 ng/mL Potential Toxicity Performed By: #### I MARCELLUS, VITAD #### [facility] [address] [address] [address] Abraham Harris MG MAMM SCREEN 3D BEBETO CADon 04-02-2021 MG MAMM SCREEN 3D BEBETO CAD Patient: AKUA PEREZ Exam Date: 04/02/2021 : 1955 Gender:F Ordering : DR CARLA NESBITT . Admission #: [id number] Family : Order #: [id number] CLICK HERE TO VIEW EXAM RADIOLOGY REPORT [...] Treatments None Family Cancers None LOCATION: [facility] BREAST COMPOSITION: Heterogeneously dense,which may obscure [...] MD on 04/02/2021 at 14:01 Normal [facility] Encounters Encounter Date Encounter Type Care Provider Facility Start: 02-27-2022 End: 02-28-2022 ambulatory CARLA NESBITT Facility:[facility] Start: 04-02-2021 End: 04-03-[address] CARLA NESBITT Facility:[facility] Payers Date Payer Category Payer Medicaid [id number] 1958 Medicare [id number] 1958 Unknown [id number] 1955 Unknown [id number] 1955 Unknown [id number] Summary Purpose Family History No Family History Records Found Advance Directives No Advanced Directives Records Found Additional Source Comments INFORMATION SOURCE (unrecogn ized section and content) DATE CREATED AUTHOR 03/04/2022 [facility] FOR RECORDS PERTAINING TO PATIENTS WHO [...] BE BASED ON THE PRIMARY CLINICAL RECORDS. [facility] [employer] [facility]. provides no warranty or guarantee of the accuracy or completeness of information in this document.
[2024-05-07 15:56] LABS: Internal Control Within Normal Limits; Occult Blood Positive
== END 2024-05-06 14:58 | disposition home or self-care (01) ==
LOC: LAB 14:57
PROVIDERS: PCP Family Medicine; Visit Provider Family Medicine
DX: E78.5 Hyperlipidemia, unspecified (principal); E03.9 Hypothyroidism, unspecified; I10 Essential (primary) hypertension; E55.9 Vitamin D deficiency, unspecified; R73.09 Other abnormal glucose; Z12.12 Encounter for screening for malignant neoplasm of rectum; D64.9 Anemia, unspecified
CPT/HCPCS: G0328

== ENCOUNTER 2024-05-07 14:40 | Outpatient (OUT) | payer MEDICARE, SELFPAY ==
--- OUTSIDE RECORDS SUMMARY | 2024-05-07 14:55 | XMS_ITS | CCD ---
Author Organization [facility] Care Team Providers Care Clerical Support Specialist Name Role Phone DR CALRA NESBITT Consulting Unavailable DELICIA, DR AGUIRRE Primary [...] 02-28-2022 Insulin 8.4 uIU/mL Normal 2.6-24.9 [facility] Comment on above: Performed By: #### I NSULIN #### [facility] Laboratory [address] [address] [address] Abraham Harris CBC AUTO DIFFon 02-27-2022 BASO # 0.1 103/ul Normal 0.0-0.1 [facility] Comment on above: Performed By: #### C BC #### [facility] [address] [place] [address] Dr. Abraham Harris Basophils/100 WBC (Bld) 1.7 % Normal 0.2-2.0 [facility] Comment on above: Performed By: #### C BC #### [facility] [address] [place] [address] Dr. Abraham Harris EO # 0.2 103/ul Normal 0.0-0.7 [facility] Comment on above: Performed By: #### C BC #### [facility] [address] [place] [address] Dr. Abraham Harris Eosinophils/100 WBC (Bld) 3.1 % Normal 0.9-7.0 [facility] Comment on above: Performed By: #### C BC #### [facility] [address] [place] [address] Dr. Abraham Harris Erythrocyte distribution width (RBC) [Ratio] 12.9 % Normal 11.0-15.0 [facility] Comment on above: Performed By: #### C BC #### [facility] [address] [place] [address] Dr. Abraham Harris Hematocrit (Bld) [Volume fraction] 42.3 % Normal 36.0-48.0 [facility] Comment on above: Performed By: #### C BC #### [facility] [address] [place] [address] Dr. Abraham Harris Hemoglobin (Bld) [Mass/Vol] 13.8 g/dL Normal 12.0-16.0 [facility] Comment on above: Performed By: #### C BC #### [facility] [address] [place] [address] Dr. Abraham Harris IG # 0.02 10e3/ul Normal 0.00-0.03 [facility] Comment on above: Performed By: #### C BC #### [facility] [address] [place] [address] Dr. Abraham Harris IG % 0.4 % Normal 0.0-0.5 [facility] Comment on above: Performed By: #### C BC #### [facility] [address] [place] [address] Dr. Abraham Harris LYMPH # 1.3 103/ul Normal 1.2-3.8 [facility] Comment on above: Performed By: #### C BC #### [facility] [address] [place] [address] Dr. Abraham Harris Lymphocytes/100 WBC (Bld) 25.2 % Normal 20.5-60.0 [facility] Comment on above: Performed By: #### C BC #### [facility] [address] [place] [address] Dr. Abraham Harris MANUAL DIFF REQ NO Normal [facility] Comment on above: Performed By: #### C BC #### [facility] [address] [place] [address] Dr. Abraham Harris MCH (RBC) [Entitic mass] 29.6 pg Normal 26.7-34.0 [facility] Comment on above: Performed By: #### C BC #### [facility] [address] [place] [address] Dr. Abraham Harris MCHC (RBC) [Mass/Vol] 32.6 g/dL Normal 29.9-35.2 [facility] Comment on above: Performed By: #### C BC #### [facility] [address] [place] [address] Dr. Abraham Harris MCV (RBC) [Entitic vol] 90.8 fL Normal 81.0-99.0 [facility] Comment on above: Performed By: #### C BC #### [facility] [address] [place] [address] Dr. Abraham Harris MONO # 0.3 103/ul Normal 0.3-0.8 [facility] Comment on above: Performed By: #### C BC #### [facility] [address] [place] [address] Dr. Abraham Harris Monocytes/100 WBC (Bld) 5.0 % Normal 1.7-12.0 [facility] Comment on above: Performed By: #### C BC #### [facility] [address] [place] [address] Dr. Abraham Harris NEUT # 3.4 103/ul Normal 1.4-6.5 [facility] Comment on above: Performed By: #### C BC #### [facility] [address] [place] [address] Dr. Abraham Harris Neutrophils/100 WBC (Bld) 64.6 % Normal 43.0-75.0 [facility] Comment on above: Performed By: #### C BC #### [facility] [address] [place] [address] Dr. Abraham Harris Platelet mean volume (Bld) [Entitic vol] 9.9 fL Normal 9.5-13.5 [facility] Comment on above: Performed By: #### C BC #### [facility] [address] [place] [address] Dr. Abraham Harris PLT 229 103/ul Normal 150-450 [facility] Comment on above: Performed By: #### C BC #### [facility] [address] [place] [address] Dr. Abraham Harris RBC 4.66 106/ul Normal 4.20-5.40 [facility] Comment on above: Performed By: #### C BC #### [facility] [address] [place] [address] Dr. Abraham Harris WBC 5.2 103/ul Normal 4.0-11.0 [facility] Comment on above: Performed By: #### C BC #### [facility] [address] [place] [address] Dr. Abraham Harris FREE THYROXINE INDEX T7on FTI 3.64 Normal 1.30-4.50 [facility] Comment on above: Performed By: #### L IPID, CMP, TSH, T7 #### [facility] [address] [place] [address] Dr. Abraham Harris T3U 36.0 % Normal 30.0-39.0 [facility] Comment on above: Performed By: #### L IPID, CMP, TSH, T7 #### [facility] [address] [address] [address] Abraham Harris T4 [Mass/Vol] 10.10 ug/dL Normal 4.80-13.90 [facility] Comment on above: Performed By: #### L IPID, CMP, TSH, T7 #### [facility] [address] [address] [address] Abraham Harris GLYCOHEMOGLOBIN A1Con 2021 ADA RECOMMENDATION SEE BELOW Normal [facility] Comment on above: Result Comment: ADA RECOMMENDED LIMIT 4.0 - 6.0 ADA THERAPEUTIC TARGET < 7.0 ACTION SUGGESTED > 7.0 Performed By: #### A 1C #### [facility] [address] [address] [address] Abraham Harris Glucose [Mass/Vol] 111 mg/dL Normal [facility] Comment on above: Performed By: #### A 1C #### [facility] [address] [address] [address] Abraham Harris HbA1c (Bld) [Mass fraction] 5.5 % Normal 4.5-6.2 [facility] Comment on above: Performed By: #### A 1C #### [facility] [address] [address] [address] Abraham Harris IRONon 02-27-2022 Iron [Mass/Vol] 82.0 ug/dL Normal 50.0-170.0 [facility] Comment on above: Performed By: #### I MARCELLUS VITAD #### [facility] [address] [address] [address] Abraham Harris LIPID PROFILEon 02-27-2022 CHOL-HDL RATIO NORM SEE BELOW Normal [facility] Comment on above: Result Comment: 3.3 - 4.4 LOW RISK 4.4 - 7.1 AVERAGE RISK 7.1 - 11.0 MODERATE RISK >11.0 HIGH RISK Performed By: #### L IPID, CMP, TSH, T7 #### [facility] [address] [address] [address] Abraham Harris Cholesterol [Mass/Vol] 271 mg/dL Critically high <=200 [facility] Comment on above: Performed By: #### L IPID, CMP, TSH, T7 #### [facility] [address] [address] [address] Abraham Harris Cholesterol in HDL [Mass/Vol] 65 mg/dL Critically high 40-60 [facility] Comment on above: Performed By: #### L IPID, CMP, TSH, T7 #### [facility] [address] [address] [address] Abraham Harris Cholesterol in LDL [Mass/Vol] 177.4 mg/dL Normal [facility] Comment on above: Performed By: #### L IPID, CMP, TSH, T7 #### [facility] [address] [address] [address] Abraham Harris Cholesterol.total/Cho lesterol in HDL [Mass ratio] 4.2 {ratio} Normal [facility] Comment on above: Performed By: #### L IPID, CMP, TSH, T7 #### [facility] [address] [address] [address] Abraham Harris HDL NORMAL > or = 60 mg/dl - LO W CARDIOVASCULAR RISK <40 mg/dl - HIGH CARDIOVASCULAR RISK Normal [facility] Comment on above: Performed By: #### L IPID, CMP, TSH, T7 #### [facility] [address] [address] [address] Abraham Harris LDL CALC NORMAL SEE BELOW Normal [facility] Comment on above: Result Comment: <100 mg/dl OPTIMAL 100 - 129 mg/dl NEAR OR ABOVE OPTIMAL 130 - 159 mg/dl BORDERLINE HIGH 160 - 189 mg/dl HIGH >190 mg/dl VERY HIGH Performed By: #### L IPID, CMP, TSH, T7 #### [facility] [address] [address] [address] Abraham Harris Triglyceride [Mass/Vol] 143 mg/dL Normal <=150 [facility] Comment on above: Performed By: #### L IPID, CMP, TSH, T7 #### [facility] [address] [place] [address] Dr. Abraham Harris VLDL CALC 28.6 mg/dL Normal [facility] Comment on above: Performed By: #### L IPID, CMP, TSH, T7 #### [facility] [address] [place] [address] Dr. Abraham Harris PROF 14(COMP METB)on 022 Albumin [Mass/Vol] 3.9 g/dL Normal 3.4-5.0 [facility] Comment on above: Performed By: #### L IPID, CMP, TSH, T7 #### [facility] [address] [place] [address] Dr. Abraham Harris Albumin/Globulin [Mass ratio] 1.0 {ratio} Normal [facility] Comment on above: Performed By: #### L IPID, CMP, TSH, T7 #### [facility] [address] [place] [address] Dr. Abraham Harris ALP [Catalytic activity/Vol] 46 U/L Normal 46-116 [facility] Comment on above: Performed By: #### L IPID, CMP, TSH, T7 #### [facility] [address] [place] [address] Dr. Abraham Harris ALT [Catalytic activity/Vol] 14 U/L Normal 14-59 [facility] Comment on above: Performed By: #### L IPID, CMP, TSH, T7 #### [facility] [address] [place] [address] Dr. Abraham Harris Anion gap [Moles/Vol] 11.3 mmol/L Normal [facility] Comment on above: Performed By: #### L IPID, CMP, TSH, T7 #### [facility] [address] [place] [address] Dr. Abraham Harris AST [Catalytic activity/Vol] 12 U/L Critically low 15-37 [facility] Comment on above: Performed By: #### L IPID, CMP, TSH, T7 #### [facility] [address] [place] [address] Dr. Abraham Harris Bilirubin [Mass/Vol] 1.0 mg/dL Normal 0.2-1.0 [facility] Comment on above: Performed By: #### L IPID, CMP, TSH, T7 #### [facility] [address] [address] [address] Abraham Harris Calcium [Mass/Vol] 9.4 mg/dL Normal 8.5-10.1 [facility] Comment on above: Performed By: #### L IPID, CMP, TSH, T7 #### [facility] [address] [place] [address] Dr. Abraham Harris Chloride [Moles/Vol] 105 mmol/L Normal 98-107 [facility] Comment on above: Performed By: #### L IPID, CMP, TSH, T7 #### [facility] [address] [place] [address] Dr. Abraham Harris CO2 [Moles/Vol] 28.0 mmol/L Normal 21.0-32.0 [facility] Comment on above: Performed By: #### L IPID, CMP, TSH, T7 #### [facility] [address] [place] [address] Dr. Abraham Harris Creatinine [Mass/Vol] 0.85 mg/dL Normal 0.55-1.02 [facility] Comment on above: Performed By: #### L IPID, CMP, TSH, T7 #### [facility] [address] [place] [address] Dr. Abraham Harris EGFR-AF [place] >60 Normal >=60 [facility] Comment on above: Performed By: #### L IPID, CMP, TSH, T7 #### [facility] [address] [place] [address] Dr. Abraham Harris EGFR-NON AF [place] >60 Normal >=60 [facility] Comment on above: Performed By: #### L IPID, CMP, TSH, T7 #### [facility] [address] [place] [address] Dr. Abraham Harris Globulin (S) [Mass/Vol] 4.0 g/dL Normal [facility] Comment on above: Performed By: #### L IPID, CMP, TSH, T7 #### [facility] [address] [place] [address] Dr. Abraham Harris Glucose [Mass/Vol] 106 mg/dL Normal 74-106 [facility] Comment on above: Performed By: #### L IPID, CMP, TSH, T7 #### [facility] [address] [place] [address] Dr. Abraham Harris Potassium [Moles/Vol] 4.3 mmol/L Normal 3.5-5.1 [facility] Comment on above: Performed By: #### L IPID, CMP, TSH, T7 #### [facility] [address] [place] [address] Dr. Abraham Harris Protein [Mass/Vol] 7.9 g/dL Normal 6.4-8.2 [facility] Comment on above: Performed By: #### L IPID, CMP, TSH, T7 #### [facility] [address] [place] [address] Dr. Abraham Harris Sodium [Moles/Vol] 140 mmol/L Normal 136-145 [facility] Comment on above: Performed By: #### L IPID, CMP, TSH, T7 #### [facility] [address] [place] [address] Dr. Abraham Harris Urea nitrogen [Mass/Vol] 13.0 mg/dL Normal 7.0-18.0 [facility] Comment on above: Performed By: #### L IPID, CMP, TSH, T7 #### [facility] [address] [place] [address] Dr. Abraham Harris Urea nitrogen/Creatinine [Mass ratio] 15.3 mg/mg Normal [facility] Comment on above: Performed By: #### L IPID, CMP, TSH, T7 #### [facility] [address] [place] [address] Dr. Abraham Harris TSHon 02-27-2022 TSH 2.006 uIU/mL Normal 0.358-3.740 [facility] Comment on above: Performed By: #### L IPID, CMP, TSH, T7 #### [facility] [address] [address] [address] Abraham Harris VITAMIN D 25 OHon 02-27-2022 VIT D 25-OH 69.8 ng/mL Normal [facility] Comment on above: Performed By: #### I MARCELLUS, VITAD #### [facility] [address] [place], [place] [address] Dr. Abraham Harris VIT D RANGES SEE BELOW Normal [facility] Comment on above: Result Comment: <20 ng/mL Vit D deficient 20 - <30 ng/mL Vit D insufficient 30 - 100 ng/mL Vit D sufficient >100 ng/mL Potential Toxicity Performed By: #### I MARCELLUS, VITAD #### [facility] [address] [address] [address] Abraham Harris MG MAMM SCREEN 3D BEBETO CADon 04-02-2021 MG MAMM SCREEN 3D BEBETO CAD Patient: AKUA PEREZ Exam Date: 04/02/2021 : 1955 Gender:F Ordering : DR CARLA NESBITT . Admission #: [id number] Family : Order #: [id number] CLICK HERE TO VIEW EXAM RADIOLOGY REPORT [...] Treatments None Family Cancers None LOCATION: [facility] BREAST COMPOSITION: Heterogeneously dense,which may obscure small [...] MD on 04/02/2021 at 14:01 Normal [facility] Encounters Encounter Date Encounter Type Care Provider Facility Start: 02-27-2022 End: 02-28-2022 ambulatory CARLA NESBITT Facility:[facility] Start: 04-02-2021 End: 04-03-[address] CARLA NESBITT Facility:[facility] Payers Date Payer Category Payer Medicaid [id number] 1958 Medicare [id number] 1958 Unknown [id number] 1955 Unknown [id number] 1955 Unknown [id number] Summary Purpose Family History No Family History Records Found Advance Directives No Advanced Directives Records Found Additional Source Comments INFORMATION SOURCE (unrecogn ized section and content) DATE CREATED AUTHOR 03/04/[address] [facility] FOR RECORDS PERTAINING TO PATIENTS WHO [...] BE BASED ON THE PRIMARY CLINICAL RECORDS. [facility] [employer] [facility]. provides no warranty or guarantee of the accuracy or completeness of information in this document.
[2024-05-07 15:56] LABS: Free T3 3.15 pg/mL (2.18-3.98); Thyroid Stimulating Hormone 0.147 uIU/mL (0.358-3.740)
== END 2024-05-07 14:41 | disposition home or self-care (01) ==
LOC: LAB 14:42
PROVIDERS: PCP Family Medicine; Visit Provider Family Medicine
DX: E03.9 Hypothyroidism, unspecified (principal)
CPT/HCPCS: 36415; 84436; 84443; 84481

== ENCOUNTER 2024-11-04 13:35 | Outpatient (OUT) | payer MEDICARE, SELFPAY ==
--- OUTSIDE RECORDS SUMMARY | 2024-06-16 09:30 | XMS_ITS ---
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 Name Role Phone Yves Menjivar Primary Care Provider Allergies Allergen (clinical drug ingredient) Drug/Non Drug Allergy documented on EMR Reaction Allergy Type Onset Date Status Substance with sulfonamide structure and antibacterial mechanism of action (substance) Sulfa Antibiotics Unknown Drug Allergy Active Results Component Value Reference Range Notes COVID-19, Flu A+B IH Reviewed date:06/16/2024 01:44:02 PM Interpretation: Performing Lab: Notes/Report: COVID - FLU A + FLU B - Control + REASON FOR VISIT patient is co coughing, sore throat, started friday night Medications Medication SIG (Take, Route, Frequency, Duration) Notes Start Date End Date Status Melatonin 5 MG 2 tablets Orally Q H S for 30 days 08/01/2022 Active Vitamin D 50 MCG (1999 UT) 1 tablet Oral ly BID for 30 days Active Amoxicillin-Pot Clavulanate 875-125 MG 1 tablet Orally every 12 hrs for 10 days 06/16/2024 Active Multivitamin - TAKE 1 TABLET BY KEENAN TH ONCE A DAY Orally Once a day for 30 days Active Vitamin B12 1000 MCG 1 tablet Orally Onc e a day Active Levothyroxine Sodium 75 MCG TAKE ONE TAB LET BY MOUTH ONCE DAILY IN THE MORNING ON AN EMPTY STOMACH for 30 days Active Cytomel 5 MCG 2 tablet on an empty stomach Orally Once a day for 30 days 03/03/2024 Active Ferrous Sulfate 325 (65 Fe) MG 1 tablet Orally BID for 30 days 03/03/2024 Active Calcium & Magnesium Carbonates Active Carvedilol 12.5 mg TAKE ONE TABLET BY M OUT TWICE A DAY FOR 30 DAYS for 30 Active Aspirin 81 81 MG 1 tablet Orally Once a day Active predniSONE 20 MG 2 tablets Orally Onc e a day for 5 days 06/16/2024 Active Banophen 25 MG 2 tablets Orally Onc e a day for 30 days Active Tamiflu 75 MG 1 capsule Orally Twi ce a day for 5 days 06/16/2024 Active Social History Tobacco Use: Social History Observation Description Date Details (start date - stop date) Former Smoker 04/21/1970 - 04/21/1995 Tobacco Use/Smoking Question Answer Notes Patient is a former smoker When did you start smoking? 04/21/1970 When did you stop smoking? 04/21/1995 How long has it been since you last smoked? > 10 years AUDIT-C (Standard) Question Answer Notes Did you have a drink containing alcohol in the p ast year? No Points 0 Interpretation Negative Vital Signs Temperature 101.4 degrees Fahrenheit 025 Blood pressure systolic 134 mm Hg 06/16/19 25 Blood pressure diastolic 80 mm Hg 025 Height 62 in 06/16/2024 Weight 158.4 lbs 06/16/2024 BMI 28.97 kg/m2 06/16/2024 Encounters Encounter Location Date Provider Diagnosis [address] [address] 06/16/2024 Yves Hoy Fever R50.9 and Acut e bronchitis, unspecified organism J20.9 Assessments Encounter Date Diagnosis (ICD Code) Assessment Notes Treatment Notes Treatment Clinical Notes Section Notes 06/16/2024 Fever (ICD-10 - R50.9) 06/16/2024 Acute bronchitis, unspecified organism (ICD-10 - J20.9) Rest and drink more liquids, especially water. You may use a humidifier or vaporizer to help keep the drainage moist. Hoyz-arl-qerqfct Nasal Saline may help the stuffy and runny nose. Use Ibuprofen and or Tylenol as needed for fever, chills, body aches or pain. Children 5 years old should not be given ejjy-rdc-yhkcppr cough and cold medications such as guaifenesin and dextromethorphan. If you're over age 5, you may try gxng-crt-yfeghij cold medications such as guaifenesin and dextromethorphan, or multi-symptom cold reliever such as Dayquil to help reduce the symptoms. Antibiotics have been prescribed. You should take these until completed and follow the directions. Antibiotics can sometimes cause upset stomach, and in rare cases, serious allergic reactions or serious gastrointestinal problems. If you start having severe abdominal pain, severe vomiting, or bloody diarrhea, you should be reevaluated by your physician or urgent care immediately. Follow up with your Primary Care Provider or return to clinic if symptoms do not improve within 3-5 days. If you develop severe symptoms such as shortness of breath, repeated vomiting, coughing up blood, or chest pain you should go to the emergency room or call 911 Plan Of Treatment Medication Medication Name Sig Start Date Stop Date Notes Amoxicillin-Pot Clavulanate 875-125 MG 1 tablet Orally every 12 hrs for 10 days 06/16/2024 predniSONE 20 MG 2 tablets Orally Onc e a day for 5 days 06/16/2024 Tamiflu 75 MG 1 capsule Orally Twi ce a day for 5 days 06/16/2024 Treatment Notes Assessment Notes Acute bronchitis, unspecified organism R est and drink more liquids, especially water. You may use a humidifier or vaporizer to help keep the drainage moist. Ibtl-nod-eafpmcd Nasal Saline may help the stuffy and runny nose. Use Ibuprofen and or Tylenol as needed for fever, chills, body aches or pain. Children 5 years old should not be given rjhj-eqe-fjuscsk cough and cold medications such as guaifenesin and dextromethorphan. If you're over age 5, you may try lydi-tmf-xujudqm cold medications such as guaifenesin and dextromethorphan, or multi-symptom cold reliever such as Dayquil to help reduce the symptoms. Antibiotics have been prescribed. You should take these until completed and follow the directions. Antibiotics can sometimes cause upset stomach, and in rare cases, serious allergic reactions or serious gastrointestinal problems. If you start having severe abdominal pain, severe vomiting, or bloody diarrhea, you should be reevaluated by your physician or urgent care immediately. Follow up with your Primary Care Provider or return to clinic if symptoms do not improve within 3-5 days. If you develop severe symptoms such as shortness of breath, repeated vomiting, coughing up blood, or chest pain you should go to the emergency room or call 911 Next Appt Details Follow Up: 3-5 days if not i mproving, Reason: Provider Name:Yves Menjivar, 10:00:00 AM, [address] [place] [address], [id number], Progress Notes * AKUA PEREZ RDOB:1955 (68 yo F)Acc No.[id number]:06/16/2024 Progress Note Patient: AKUA MOYA Provider: Darius Menjivar ([facility])MD :1955 A ge:68 Y S ex:Female Date:06/16/2024 Address:[address] [place], [place] [id number] Check In:01:27 PM ESTCheck O ut:02:07 PM EST Subjective: * Chief Complaints: * P atient is co coughing, sore throat, started friday night * HPI: D epression Screening: PHQ-9 L ittle interest or pleasure in doing things�Several days F eeling down, depressed, or hopeless N ot at all T rouble falling or staying asleep, or sleeping too much S everal days F eeling tired or having little energy S everal days P oor appetite or overeating S everal days F eeling bad about yourself or that you are a failure, or have let yourself or your family down N ot at all T rouble concentrating on things, such as reading the newspaper or watching television N ot at all M oving or speaking so slowly that other people could have noticed; or the opposite, being so fidgety or restless that you have been moving around a lot more than usual N ot at all T houghts that you would be better off or of hurting yourself in some way N ot at all T otal Score 4 I nterpretation M inimal Depression B ronchitis: The patient complains of symptoms of bronchitis. The symptoms have been present for 1-2 days. The symptoms are moderate. The patient has not been exposed to sick contacts. Symptomatic treatment has included OTC medication. Associated symptoms include nasal congestion, postnasal drainage, congested ears, cough, fever, chills, body aches. * ROS: E NT: Ear pain d enies. H oarseness d enies. � C ardiovascular: Edema d enies. P alpitations d enies. � R espiratory: Comments S [facility] for details. G astrointestinal: Abdominal pain d enies. D iarrhea d enies. N ausea d enies. S kin: Rash d enies. * Active Problem List E03.9 Hypothyroidism Modified On:02/27/2023/U Status:confirmed Z00.00 Well adult Modified On:02/13/2023/U Status:confirmed E78.5 Hyperlipidemia Modified On:03/12/2023U Status:confirmed E55.9 Vitamin D deficiency Modified On:02/13/2023U Status:confirmed I10 Hypertension Modified On:02/27/2023 Status:confirmed * Medical History: * Surgical History: T otal Hysterectomy 06/2003breast biopsy 2003 * Hospitalization/Major Diagno stic Procedure: N o Hospitalization History. * Family History: F ather: , stroke, atrial fib, diagnosed with Unspecified essential hypertension. M other: alive, diagnosed with Unspecified essential hypertension. * Social History: T obacco Use: T obacco Use/Smoking P atient is a f ormer smoker W hen did you start smoking? 0 04/21/1970 W hen did you stop smoking? 0 04/21/1995 H ow long has it been since you last smoked?�> 10 years D rug/Alcohol: A ZEV-C (Standard) D id you have a drink containing alcohol in the past year? N o P oints 0 I nterpretation N egative * Medications: T akingAspirin 81(Aspirin) 81 MG Tablet Chewable 1 tablet Orally Once a day Banophen(diphenhydrAMINE HCl) 25 MG Tablet 2 tablets Orally Once a day Calcium & Magnesium Carbonates Carvedilol 12.5 mg Tablet TAKE ONE TABLET BY MOUTH TWICE A DAY FOR 30 DAYS Cytomel(Liothyronine Sodium) 5 MCG Tablet 2 tablet on an empty stomach Orally Once a day Ferrous Sulfate 325 (65 Fe) MG Tablet 1 tablet Orally BID Levothyroxine Sodium 75 MCG Tablet TAKE ONE TABLET BY MOUTH ONCE DAILY IN THE MORNING ON AN EMPTY STOMACH Melatonin 5 MG Tablet 2 tablets Orally Q HS Multivitamin(Multiple Vitamin) - Tablet TAKE 1 TABLET BY MOUTH ONCE A DAY Orally Once a day Vitamin B12 1000 MCG Tablet Extended Release 1 tablet Orally Once a day Vitamin D 50 MCG (1999 UT) Tablet 1 tablet Orally BID Medication List reviewed and reconciled with the patientTaking Aspirin 81(Aspirin) 81 MG Tablet Chewable 1 tablet Orally Once a day Taking Banophen(diphenhydrAMINE HCl) 25 MG Tablet 2 tablets Orally Once a day Taking Calcium & Magnesium Carbonates Taking Carvedilol 12.5 mg Tablet TAKE ONE TABLET BY MOUTH TWICE A DAY FOR 30 DAYS Taking Cytomel(Liothyronine Sodium) 5 MCG Tablet 2 tablet on an empty stomach Orally Once a day Taking Ferrous Sulfate 325 (65 Fe) MG Tablet 1 tablet Orally BID Taking Levothyroxine Sodium 75 MCG Tablet TAKE ONE TABLET BY MOUTH ONCE DAILY IN THE MORNING ON AN EMPTY STOMACH Taking Melatonin 5 MG Tablet 2 tablets Orally Q HS Taking Multivitamin(Multiple Vitamin) - Tablet TAKE 1 TABLET BY MOUTH ONCE A DAY Orally Once a day Taking Vitamin B12 1000 MCG Tablet Extended Release 1 tablet Orally Once a day Taking Vitamin D 50 MCG (1999 UT) Tablet 1 tablet Orally BID Medication List reviewed and reconciled with the patient * Allergies: S adán Gamez[Allergies Verified] Objective: * Vitals: W t:158.4lbs, Ht: 62 in, BP:134/80mm Hg, Temp:101.4F, BMI:28.97Index, Ht-cm: 157.48 cm, Wt-k.85 kg. * Examination: G eneral Examination: GENERAL APPEARANCE: in no acute distress. EYES: EOMI. EARS: auditory canal clear, middle ear effusion noted.� NOSE: clear discharge, turbinates pale and swollen. ORAL CAVITY: mucosa moist. THROAT: no erythema, post-nasal drainage noted. NECK: neck supple, no thyromegaly. LYMPH NODES: n o cervical adenopathy. LUNGS: unlabored, clear to auscultation bilaterally. CARDIO: n o murmurs, regular rate and rhythm. ABDOMEN: b owel sounds present, no organomegaly . � Assessment: * Assessment: 1. F ever - R50.9 (Primary) 2 . A cute bronchitis, unspecified organism - J20.9 Plan: * Treatment: 2. A cute bronchitis, unspecified organism Notes:Rest and drink more liquids, especially water. You may use a humidifier or vaporizer to help keep the drainage moist. Ggki-wum-dnjczon Nasal Saline may help the stuffy and runny nose. Use Ibuprofen and or Tylenol as needed for fever, chills, body aches or pain. Children 5 years old should not be given xvqd-mco-jioejjp cough and cold medications such as guaifenesin and dextromethorphan. If you're over age 5, you may try pvkr-neg-ervdpek cold medications such as guaifenesin and dextromethorphan, or multi-symptom cold reliever such as Dayquil to help reduce the symptoms. Antibiotics have been prescribed. You should take these until completed and follow the directions. Antibiotics can sometimes cause upset stomach, and in rare cases, serious allergic reactions or serious gastrointestinal problems. If you start having severe abdominal pain, severe vomiting, or bloody diarrhea, you should be reevaluated by your physician or urgent care immediately. Follow up with your Primary Care Provider or return to clinic if symptoms do not improve within 3-5 days. If you develop severe symptoms such as shortness of breath, repeated vomiting, coughing up blood, or chest pain you should go to the emergency room or call 911 * Labs: * L ab: COVID-19, Flu A+B IH (Collection Date & Time - 06/16/2024) Value Reference Range C OVID - * F MARIE A + * F MARIE B - * C ontrol + * Procedure Codes: 8 7636 SARSCOV2 & INF A&B AMP PRB, Modifiers: QW * Preventive Medicine: Screenings/Counseling: F ALL RISK SCREENING Fall Risk Assessment: N o falls in the past year * Follow Up: 3 -5 days if not improving * * Sign off status: Completed Visit Status: C HK (Check Out) true * Provider: Darius Menjivar ([facility])MD Date: 06/16/2024 Generated for Angelesi pedrito/Anthony/eTransmitting on: 0 11/04/2024 01:40 PM EDT History and Physical Notes * HPI (History of Present Illness) Category Sub-Category Detail Notes Category Not es Depression Screening PHQ-9 Little inte rest or pleasure in doing things: Several days Feeling down, depressed, or hopeless: No t at all Trouble falling or staying asleep, or sl eeping too much: Several days Feeling tired or having little energy: S everal days Poor appetite or overeating: Several day s Feeling bad about yourself o r that you are a failure, or have let yourself or your family down: Not at all Trouble concentrating on thi ngs, such as reading the newspaper or watching television: Not at all Moving or speaking so slowly that other people could have noticed; or the opposite, being so fidgety or restless that you have been moving around a lot more than usual: Not at all Thoughts that you would be b queta off or of hurting yourself in some way: Not at all Total Score: 4 Interpretation: Minimal Depression Examination Category Sub-Category Detail Notes Category Not es General Examination GENERAL APPEARANCE: in no acute di stress EYES: EOMI EARS: auditory canal clear , middle ear effusion noted NOSE: clear discharge, tur binates pale and swollen THROAT: no erythema, post-na erasto drainage noted NECK: neck supple, no thyr omegaly CARDIO: no murmurs, regular rate and rhythm LUNGS: unlabored, clear to auscultation bilaterally ABDOMEN: bowel sounds present , no organomegaly LYMPH NODES: no cervical adenopat hy ORAL CAVITY: mucosa moist
--- OUTSIDE RECORDS SUMMARY | 2024-11-03 07:30 | XMS_ITS ---
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 [address] [place] [phone] 11/03/2024 Yves Menjivar Hypothyroidism E03.9 and Hypertension [...] Appt Details Provider Name:Yves Menjivar, 10:00:00 AM, [facility] [place], [address], Progress Notes * AKUA PEREZ RDOB:1955 (69 yo F)Acc No.[id number]:11/03/2024 UNLOCKED PROGRESS NOTE Progress Note Patient: AKUA MOYA Provider: Darius Menjivar ([facility])MD :1955 A ge:69 Y S ex:Female Date:11/03/2024 Address:[address] [place], [place] [id number] Check In:11:30 AM ESTCheck O ut:12:17 PM EST Subjective: * Chief Complaints: * 1 . Thyroid Issues- patient said it is all out of whack again - just not feeling right. 2. Constipation, sweating excessively at night, hair falling out, sleeping all the time, nails have ridges in them. 3. Since she had Influenza her taste is weird . 4. Med list updated per patient. * HPI: G eneral: Feels like weird [...] enies. S wollen joints d enies. * Medical History: * Medications: T daphne Aspirin 81(Aspirin) 81 MG Tablet Chewable 1 tablet Orally Once a day , Taking Calcium & Magnesium Carbonates , Taking Carvedilol 12.5 mg Tablet TAKE ONE TABLET BY MOUTH TWICE A DAY FOR 30 DAYS , Taking Cytomel(Liothyronine Sodium) 5 MCG Tablet 2 tablet on an empty stomach Orally Once a day , Taking Ferrous Sulfate 325 (65 Fe) MG Tablet 1 tablet Orally BID , Taking Levothyroxine Sodium 75 MCG Tablet TAKE ONE TABLET BY MOUTH ONCE DAILY IN THE MORNING ON AN EMPTY STOMACH , Taking Melatonin 10 MG Capsule 1 tablet Orally Q HS , Taking Multivitamin(Multiple Vitamin) - Tablet TAKE 1 TABLET BY MOUTH ONCE A DAY Orally Once a day , Discontinued Amoxicillin-Pot Clavulanate 875-125 MG Tablet 1 tablet Orally every 12 hrs , Discontinued Banophen(diphenhydrAMINE HCl) 25 MG Tablet 2 tablets Orally Once a day , Discontinued predniSONE 20 MG Tablet 2 tablets Orally Once a day , Discontinued Tamiflu(Oseltamivir Phosphate) 75 MG Capsule 1 capsule Orally Twice a day , Discontinued Vitamin B12 1000 MCG Tablet Extended Release 1 tablet Orally Once a day , Discontinued Vitamin D 50 MCG (2000 UT) Tablet 1 tablet Orally BID , Medication List reviewed and reconciled with the [...] CKD-EPI L AB: CBC WITH DIFF * Preventive Medicine: Screenings/Counseling: B MT ACTION PLAN Above Normal BMI Follow-up D ietary management education, guidance, and counseling * * Electronic signature of Yves Menjivar MD, [id number] on 11/04/2024 at 01:40 PM EDT Sign off status: Pending Visit Status: Eric HK (Check Out) * Provider: Darius Menjivar ([facility])MD Date: 11/03/2024 Generated for Printi ng/Faxing/eTransmitting on: 11/04/2024 01:40 PM EDT History and Physical [...]
[2024-11-04 14:07] LABS: Hematocrit 28.4 % (36.0-48.0); Hemoglobin 7.4 g/dL (12.0-16.0); Mean Corpuscular HGB Conc 26.1 g/dL (29.9-35.2); Mean Corpuscular Hemoglobin 19.9 pg (26.7-34.0); Mean Corpuscular Volume 76.3 fL (81.0-99.0); Platelet Count 574 10^3/uL (150-450); Red Blood Count 3.72 10^6/uL (4.20-5.40); White Blood Count 6.3 10^3/uL (4.0-11.0)
[2024-11-04 14:30] LABS: Alanine Aminotransferase 15 U/L (14-59); Albumin Globulin Ratio 0.3; Albumin Level 1.9 g/dL (3.4-5.0); Alkaline Phosphatase 238 U/L (46-116); Anion Gap 10.5; Aspartate Amino Transferase 12 U/L (15-37); Blood Urea Nitrogen 15.0 mg/dL (7.0-18.0); Calcium 9.9 mg/dL (8.5-10.1); Carbon Dioxide 28.7 mmol/L (21.0-32.0); Chloride 98 mmol/L (98-107); Cholesterol 141 mg/dL (<=200); Estimated GFR (African America >60 (>=60 mL/min/1.73m^2); Estimated GFR (Non-African Ame 51 (>=60 mL/min/1.73m^2); Free T3 2.62 pg/mL (2.18-3.98); Globulin 6.3 g/dL; Glucose 103 mg/dL (74-106); HDL Cholesterol 36 mg/dL (40-60); Potassium 4.2 mmol/L (3.5-5.1); Sodium 133 mmol/L (136-145); Thyroid Stimulating Hormone 1.294 uIU/mL (0.358-3.740); Total Protein 8.2 g/dL (6.4-8.2); Triglycerides 63 mg/dL (<=150); VLDL CHOLESTEROL 12.6 mg/dL
[2024-11-04 14:59] LABS: Anisocytosis 1+; Basophils Abs Manual 0.00 10^3/uL (0.00-0.10); Basophils Percent Manual 0.0 % (0.2-2.0); Eosinophils Absolute Manual 0.12 10^3/uL (0.00-0.70); Eosinophils Percent Manual 2.0 % (0.9-7.0); Lymphocytes Absolute Manual 0.94 10^3/uL (1.20-3.80); Lymphocytes Percent Manual 15.0 % (20.5-60.0); Microcytosis 1+; Monocytes Absolute Manual 0.25 10^3/uL (0.30-0.80); Monocytes Percent Manual 4.0 % (1.7-12.0); Segmented Neut Absolute Manual 4.97 10^3/uL (1.4-6.5); Segmented Neutrophils % Manual 79.0 (43.0-75.0)
[2024-11-04 15:02] LABS: Iron 15.0 ug/dL (50.0-170.0)
== END 2024-11-04 13:36 | disposition home or self-care (01) ==
LOC: LAB 13:38
PROVIDERS: PCP Family Medicine; Visit Provider Family Medicine
DX: E78.5 Hyperlipidemia, unspecified (principal); E03.9 Hypothyroidism, unspecified; I10 Essential (primary) hypertension; R73.09 Other abnormal glucose; D64.9 Anemia, unspecified; E55.9 Vitamin D deficiency, unspecified; D50.9 Iron deficiency anemia, unspecified
CPT/HCPCS: 36415; 80053; 80061; 82306; 83036; 83525; 83540; 84436; 84443; 84481; 85007; 85027

== ENCOUNTER 2024-11-05 10:34 | Outpatient (OUT) | payer MEDICARE, SELFPAY ==
--- OUTSIDE RECORDS SUMMARY | 2024-06-16 09:30 | XMS_ITS ---
Author Organization [facility] in [place] Address [address] [place] [address] Care Team Providers Care Strategy Lead Name Role Phone Yves Menjivar Primary Care [...] No Points 0 Interpretation Negative Vital Signs Weight 158.4 lbs 06/16/2024 Height 62 in 06/16/2024 Blood pressure systolic 134 mm Hg 06/16/19 25 Blood pressure diastolic 80 mm Hg 025 Temperature 101.4 degrees Fahrenheit 025 BMI 28.97 kg/m2 06/16/2024 Encounters Encounter Location Date Provider Diagnosis [address] [address] 06/16/2024 Yves Hoy Fever R50.9 and Acut e bronchitis, unspecified organism J20.9 Assessments Encounter Date Diagnosis (ICD Code) Assessment Notes Treatment Notes Treatment Clinical Notes Section Notes 06/16/2024 Fever (ICD-10 - R50.9) 06/16/2024 Acute bronchitis, unspecified organism (ICD-10 - J20.9) Rest and drink more liquids, especially water. You may use a humidifier or vaporizer to help keep the drainage moist. Qtil-glr-ofigcul Nasal Saline may help the stuffy and runny nose. Use Ibuprofen and or Tylenol as needed for fever, chills, body aches or pain. Children 5 years old should not be given qgnp-ett-acqidwz cough and cold medications such as guaifenesin and dextromethorphan. If you're over age 5, you may try xqgz-jqj-wosmphz cold medications such as guaifenesin and dextromethorphan, [...] vaporizer to help keep the drainage moist. Gchx-bwu-flpdgpn Nasal Saline may help the stuffy and runny nose. Use Ibuprofen and or Tylenol as needed for fever, chills, body aches or pain. Children 5 years old should not be given fscw-ojx-rwsoqsu cough and cold medications such as guaifenesin and dextromethorphan. If you're over age 5, you may try caqy-ezq-xcoloxg cold medications such as guaifenesin and dextromethorphan, [...] mproving, Reason: Provider Name:Yves Menjivar, 10:00:00 AM, [address] [place] [address], [id number], Progress Notes * AKUA PEREZ RDOB:1955 (68 yo F)Acc No.[id number]:06/16/2024 Progress Note Patient: AKUA MOYA Provider: Darius Menjivar ([facility])MD :1955 A ge:68 Y S ex:Female Date:06/16/2024 Address:[address] [place], [place] [id number] Check In:01:27 PM ESTCheck O ut:02:07 PM [...] d enies. � R espiratory: Comments S [facility] for details. G astrointestinal: Abdominal pain d [...] vaporizer to help keep the drainage moist. Ulxt-tup-earhwwf Nasal Saline may help the stuffy and runny nose. Use Ibuprofen and or Tylenol as needed for fever, chills, body aches or pain. Children 5 years old should not be given rldl-vxz-ouijpkg cough and cold medications such as guaifenesin and dextromethorphan. If you're over age 5, you may try txrj-hqv-zjnzpab cold medications such as guaifenesin and dextromethorphan, [...] true * Provider: Darius Menjivar ([facility])MD Date: 0 06/16/2024 Generated for Angelesi pedrito/Anthony/eTransmitting on: 0 11/05/2024 10:43 AM EDT History and Physical Notes * HPI [...]
--- OUTSIDE RECORDS SUMMARY | 2024-11-03 07:30 | XMS_ITS ---
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 Name Role Phone Yves Menjivar Primary Care Provider [phone] REASON FOR VISIT Thyroid Issues- patient said it is all out of whack again - just not feeling right, Constipation, sweating excessively at night, hair falling out, sleeping all the time, nails have ridges in them, Since she had Influenza her taste is weird , Med list updated per patient Medications Medication SIG (Take, Route, Frequency, Duration) Notes Start Date End Date Status Multivitamin - TAKE 1 TABLET BY KEENAN TH ONCE A DAY Orally Once a day for 30 days Active Levothyroxine Sodium 75 MCG TAKE ONE TAB LET BY MOUTH ONCE DAILY IN THE MORNING ON AN EMPTY STOMACH for 30 days Active Melatonin 10 MG 1 tablet Orally Q HS for 30 days 08/01/2022 Active Cytomel 5 MCG 2 tablet on an empty stomach Orally Once a day for 30 days 03/03/2024 Active Ferrous Sulfate 325 (65 Fe) MG 1 tablet Orally BID for 30 days 03/03/2024 Active Carvedilol 12.5 mg TAKE 1/2 TABLET BY M OUTH TWICE A DAY FOR 30 DAYS for 30 days Active Calcium & Magnesium Carbonates Active Aspirin 81 81 MG 1 tablet Orally Once a day Active Vital Signs Weight 138.6 lbs 11/03/2024 Height 62 in 11/03/2024 Blood pressure systolic 112 mm Hg 11/04/19 25 Blood pressure diastolic 62 mm Hg 025 BMI 25.35 kg/m2 11/03/2024 Encounters Encounter Location Date Provider Diagnosis [facility] [address] [place] [id number] 11/03/2024 Yves Menjivar Hypothyroidism E03.9 and Hypertension I10 Assessments Encounter Date Diagnosis (ICD Code) Assessment Notes Treatment Notes Treatment Clinical Notes Section Notes 11/03/2024 Hypothyroidism (ICD-10 - E03.9) 11/03/2024 Hypertension (ICD-10 - I10) Plan Of Treatment Medication Medication Name Sig Start Date Stop Date Notes Carvedilol 12.5 mg TAKE 1/2 TABLET BY M OUT TWICE A DAY FOR 30 DAYS for 30 days Pending Test Test Name Order Date HEMOGLOBIN A1C (GLYCO) 11/03/2024 IRON, TOTAL 11/03/2024 LIPID PANEL (CHOL/TRIG/HDL/LDL) 11/04/19 25 VITAMIN D, 25 LEVEL (TOTAL) 11/03/2024 Insulin Level 11/03/2024 THYROID PANEL (T4/TSH/FREE T3) CMP (COMP MET OJEDA) w/eGFR CKD-EPI 2024 CBC WITH DIFF 11/03/2024 Next Appt Details Provider Name:Yves Menjivar, 10:00:00 AM, [address] [place], [address], Progress Notes * AKUA PEREZ RDOB:1955 (69 yo F)Acc No.[id number]:11/03/2024 Progress Note Patient: AKUA MOYA Provider: Darius Menjivar ([facility])MD :1955 A ge:69 Y S ex:Female Date:11/03/2024 Address:[address] [place], [place] [id number] Check In:11:30 AM ESTCheck O ut:12:17 PM EST Subjective: * Chief Complaints: * T hyroid Issues- patient said it is all out of whack again - just not feeling rightConstipation, sweating excessively at night, hair falling out, sleeping all the time, nails have ridges in themSince she had Influenza her taste is weird Med list updated per patient * HPI: G eneral: Feels like weird taste - discussed flonase discussed Bp - has had sig weight loss in last 7 years - cutting coreg in half. * ROS: E ENT: hearing changes d enies. v isual changes d enies.�non-healing mouth sores d enies. s wollen glands or neck lumps d enies. h oarseness d enies. s ore throat d enies. d ifficulty swallowing d enies. n ose bleeds d enies. n regulo congestion d enies. e ar ache d enies. e ar discharge�denies. r inging in ears d enies. l ight sensitivity d enies. e ye pain d enies. b lurring d enies. e ye irritation d enies. d ouble vision d enies.�vision loss d enies. G eneral/Constitutional: Sweats: D enies. F atigue d enies. S leep problems d enies. A norexia d enies. M alaise d enies. W eight loss d enies.�Fatigue or Weakness d enies. F ever or Chills d enies. C ardiovascular: Shortness of Breath w/lying flat d enies. L ightheadedness/dizziness d enies. C hest tightness/ heavy pressure d enies. S welling of legs, ankles, or feet d enies. W aking up with shortness of breath d enies. C hest pain denies. P alpitations d enies. W eight gain d enies. R espiratory: Chronic or frequent cough d enies. C oughing up blood�denies. D ifficulty breathing d enies. P roductive cough d enies. S noring�denies. S hortness of breath that awakens from sleep (PND) d enies. C hest pain d enies. S putum production d enies. W heezing d enies. M usculoskeletal: Joint pain d enies. J oint Fluid d enies. B ack pain d enies. K nee pain d enies. N ck pain d enies. J oint Stiffness d enies. M uscle cramps d enies. W eakness of muscles d enies. A rthritis d enies. M uscle aches d enies. P ain in shoulder(s) d enies. S wollen joints d enies. * Active Problem List E03.9 Hypothyroidism Modified On:02/27/2023U Status:confirmed Z00.00 Well adult Modified On:02/13/2023U Status:confirmed E78.5 Hyperlipidemia Modified On:03/12/2023U Status:confirmed E55.9 Vitamin D deficiency Modified On:02/13/2023U Status:confirmed I10 Hypertension Modified On:02/27/2023 Status:confirmed * Medical History: * Surgical History: * Hospitalization/Major Diagno stic Procedure: * Medications: T akingAspirin 81(Aspirin) 81 MG Tablet Chewable 1 tablet Orally Once a day Calcium & Magnesium [...] THE MORNING ON AN EMPTY STOMACH Melatonin 10 MG Capsule 1 tablet Orally Q HS Multivitamin(Multiple Vitamin) - Tablet TAKE 1 TABLET BY MOUTH ONCE A DAY Orally Once a day Taking Aspirin 81(Aspirin) 81 MG Tablet Chewable 1 tablet Orally Once a day Taking Calcium & [...] MORNING ON AN EMPTY STOMACH Taking Melatonin 10 MG Capsule 1 tablet Orally Q HS Taking Multivitamin(Multiple Vitamin) - Tablet TAKE 1 TABLET BY MOUTH ONCE A DAY Orally Once a day DiscontinuedAmoxicillin-Pot Clavulanate 875-125 MG Tablet 1 tablet Orally every 12 hrs Banophen(diphenhydrAMINE HCl) 25 MG Tablet 2 tablets Orally Once a day predniSONE 20 MG Tablet 2 tablets Orally Once a day Tamiflu(Oseltamivir Phosphate) 75 MG Capsule 1 capsule Orally Twice a day Vitamin B12 1000 MCG Tablet Extended Release 1 tablet Orally Once a day Vitamin D 50 MCG (1999) Tablet 1 tablet Orally BID Medication List reviewed and reconciled with the patientDiscontinued Amoxicillin-Pot Clavulanate 875-125 MG Tablet 1 tablet Orally every 12 hrs Discontinued Banophen(diphenhydrAMINE HCl) 25 MG Tablet 2 tablets Orally Once a day Discontinued predniSONE 20 MG Tablet 2 tablets Orally Once a day Discontinued Tamiflu(Oseltamivir Phosphate) 75 MG Capsule 1 capsule Orally Twice a day Discontinued Vitamin B12 1000 MCG Tablet Extended Release 1 tablet Orally Once a day Discontinued Vitamin D 50 MCG (1999) Tablet 1 tablet Orally BID Medication List reviewed and reconciled with the patient Objective: * Vitals: W t:138.6lbs, Ht: 62 in, BP:112/62mm Hg, BMI:25.35Index, Ht-cm: 157.48 cm, Wt-k.87 kg. * Examination: P hysical Exam: GENERAL: w ell developed, well nourished, in no acute distress. HEAD: n ormocephalic/atraumatic. EYES: p upils equal, round and reactive to light, conjunctivae and sclerae normal. EARS: n o deformity or lesion of external ear, canals and TM appear normal bilaterally, TM's intact, not inflamed with normal light reflex, hearing grossly normal to conversational speech. NOSE: n o deformity, discharge, inflammation, or lesions.� MOUTH: m ucous membranes moist, normal oropharynx and posterior pharynx without lesions or exudates, tongue normal, dentition normal. NECK: n ck supple, no masses or palpable cervical nodes, trachea midline, thyroid without nodules, masses, tenderness, or enlargement. CHEST: n o chest wall deformity, no chest wall tenderness.� LUNGS: n ormal respiratory effort and clear to auscultation, no wheezes, rales, or rhonchi, good air exchange. CARDIO: r egular rate and rhythm, normal S1 and S2, nor murmur, rub, or gallop. PULSES: n ormal capillary refill. ABDOMEN: s oft, non-distended, non-tender, no masses. MUSCULOSKELETAL: n o deformity or scoliosis noted, normal range of motion, joints normal, no erythema, edema, effusion, or ecchymosis. EXTREMITY: n o clubbing, cyanosis, edema, or deformity with normal ROM in both upper and lower bilateral extremities. NEUROLOGIC: g rossly normal. SKIN: n o rashes, ulcerations, or suspicious lesions. LYMPH NODES: n o cervical adenopathy, nodes normal. MENTAL STATUS: a lert and oriented x3, normal mood and affect. Assessment: * Assessment: 1. H ypothyroidism - E03.9 (Primary) 2 . H ypertension - I10 � Plan: * Treatment: 2. H ypertension L AB: HEMOGLOBIN A1C (GLYCO) L AB: IRON, TOTAL L AB: LIPID PANEL (CHOL/TRIG/HDL/LDL) L AB: VITAMIN D, 25 LEVEL (TOTAL) L AB: Insulin Level L AB: THYROID PANEL (T4/TSH/FREE T3) L AB: CMP (COMP MET OJEDA) w/eGFR CKD-EPI L AB: CBC WITH DIFF * Procedure Codes: * Preventive Medicine: Screenings/Counseling: B TX ACTION PLAN Above Normal BMI Follow-up D ietary management education, guidance, and counseling * * Sign off status: Completed Visit Status: C HK (Check Out) true * Provider: Darius Menjivar ([facility])MD Date: 0 11/03/2024 Generated for Angelesi ng/Rhiannong/eTransmitting on: 0 11/05/2024 10:43 AM EDT History and Physical Notes * HPI (History of Present Illness) Category Sub-Category Detail Notes Category Not es General Feels like weird taste - discussed flonase discussed Bp - has had sig weight loss in last 7 years - cutting coreg in half Examination Category Sub-Category Detail Notes Category Not es Physical Exam GENERAL: well developed, well nourished, in no acute distress HEAD: normocephalic/atraum atic EYES: pupils equal, round and reactive to light, conjunctivae and sclerae normal EARS: no deformity or lesi on of external ear, canals and TM appear normal bilaterally, TM's intact, not inflamed with normal light reflex, hearing grossly normal to conversational speech NOSE: no deformity, discha rge, inflammation, or lesions MOUTH: mucous membranes juan st, normal oropharynx and posterior pharynx without lesions or exudates, tongue normal, dentition normal NECK: neck supple, no mass es or palpable cervical nodes, trachea midline, thyroid without nodules, masses, tenderness, or enlargement CHEST: no chest wall deform ity, no chest wall tenderness LUNGS: normal respiratory e ffort and clear to auscultation, no wheezes, rales, or rhonchi, good air exchange CARDIO: regular rate and rhy thm, normal S1 and S2, nor murmur, rub, or gallop PULSES: normal capillary ref ill ABDOMEN: soft, non-distended, non-tender, no masses RECTAL: MUSCULOSKELETAL: no deformity or scol iosis noted, normal range of motion, joints normal, no erythema, edema, effusion, or ecchymosis EXTREMITY: no clubbing, cyanosi s, edema, or deformity with normal ROM in both upper and lower bilateral extremities NEUROLOGIC: grossly normal SKIN: no rashes, ulceratio ns, or suspicious lesions LYMPH NODES: no cervical adenopat hy, nodes normal MENTAL STATUS: alert and oriented x 3, normal mood and affect
--- OUTSIDE RECORDS SUMMARY | 2024-11-04 14:14 | XMS_ITS ---
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 Phone Yves Menjivar Primary Care Provider [phone] REASON FOR VISIT review labs Medications Medication SIG (Take, Route, Frequency, Duration) Notes Start Date End Date Status Pantoprazole Sodium 40 MG 1 tablet 1/2 t o 1 hour before morning meal Orally Once a day for 30 day(s) 11/05/2024 Active Problems Problem Type SNOMED Code ICD Code Onset Dates Problem Status W/U Status Risk Notes Problem Anemia (D64.9) Active confirmed Encounters Encounter Location Date Provider Diagnosis [facility] [address] [place] [address] 11/04/2024 Yves Menjivar Anemia D64.9 Assessments Encounter Date Diagnosis (ICD Code) Assessment Notes Treatment Notes Treatment Clinical Notes Section Notes 11/04/2024 Anemia (ICD-10 - D64.9) Plan Of Treatment Medication Medication Name Sig Start Date Stop Date Notes Pantoprazole Sodium 40 MG 1 tablet 1/2 t o 1 hour before morning meal Orally Once a day for 30 day(s) 11/05/2024 Pending Test Test Name Order Date CBC W/AUTO DIFF 11/04/2024 Next Appt Details Provider Name:Yves Menjivar, 10:00:00 AM, [address] [place], [address], Progress Notes * AKUA PEREZ RDOB:1955 (69 yo F)Acc No.[id number]:11/04/2024 UNLOCKED PROGRESS NOTE Patient: AKUA MOYA :1955 A ge:69 Y S ex:Female Address:[address] [place] [address] * Refills Start Pantoprazole Sodium Tablet Delayed Release, 40 MG, Orally, 30, 1 tablet 1/2 to 1 hour before morning meal, Once a day, 30 day(s) Subjective: * Chief Complaints: * R eview labs * Medical History: * Surgical History: * Hospitalization/Major Diagno stic Procedure: * Medications: Objective: * Vitals: * Physical Examination: Assessment: * Assessment: 1. A nemia - D64.9 (Primary) Plan: * Treatment: 2. O thers Start Pantoprazole Sodium Tablet Delayed Release, 40 MG, 1 tablet 1/2 to 1 hour before morning meal, Orally, Once a day, 30 day(s), 30. * Procedure Codes: * * Date:
--- OUTSIDE RECORDS SUMMARY | 2024-11-05 11:01 | XMS_ITS | CCD ---
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 Abraham Harris CBC AUTO DIFFon 02-27-2022 BASO # 0.1 103/ul Normal 0.0-0.1 [facility] Comment on above: Performed By: #### C BC #### [facility] [address] [place] [address] Dr. Abraham Harris Basophils/100 WBC (Bld) 1.7 % Normal 0.2-2.0 [facility] Comment on above: Performed By: #### C BC #### [facility] [address] [place] [address] Dr. Abraham Harris EO # 0.2 103/ul Normal 0.0-0.7 [facility] Comment on above: Performed By: #### C BC #### [facility] [address] [place] [address] Dr. Abraham Harris Eosinophils/100 WBC (Bld) 3.1 % Normal 0.9-7.0 [facility] Comment on above: Performed By: #### C BC #### [facility] [address] [place] [address] Dr. Abraham Harris Erythrocyte distribution width (RBC) [Ratio] 12.9 % Normal 11.0-15.0 [facility] Comment on above: Performed By: #### C BC #### [facility] [address] [place] [address] Dr. Abraham Harris Hematocrit (Bld) [Volume fraction] 42.3 % Normal 36.0-48.0 [facility] Comment on above: Performed By: #### C BC #### [facility] [address] [place] [address] Dr. Abraham Harris Hemoglobin (Bld) [Mass/Vol] 13.8 g/dL Normal 12.0-16.0 [facility] Comment on above: Performed By: #### C BC #### [facility] [address] [place] [address] Dr. Abraham Harris IG # 0.02 10e3/ul Normal 0.00-0.03 [facility] Comment on above: Performed By: #### C BC #### [facility] [address] [place] [address] Dr. Abraham Harris IG % 0.4 % Normal 0.0-0.5 [facility] Comment on above: Performed By: #### C BC #### [facility] [address] [place] [address] Dr. Abraham Harris LYMPH # 1.3 103/ul Normal 1.2-3.8 [facility] Comment on above: Performed By: #### C BC #### [facility] [address] [place] [address] Dr. Abraham Harris Lymphocytes/100 WBC (Bld) 25.2 % Normal 20.5-60.0 [facility] Comment on above: Performed By: #### C BC #### [facility] [address] [place] [address] Dr. Abraham Harris MANUAL DIFF REQ NO Normal [facility] Comment on above: Performed By: #### C BC #### [facility] [address] [place] [address] Dr. Abraham Harris MCH (RBC) [Entitic mass] 29.6 pg Normal 26.7-34.0 [facility] Comment on above: Performed By: #### C BC #### [facility] [address] [place] [address] Dr. Abraham Harris MCHC (RBC) [Mass/Vol] 32.6 g/dL Normal 29.9-35.2 [facility] Comment on above: Performed By: #### C BC #### [facility] [address] [place] [address] Dr. Abraham Harris MCV (RBC) [Entitic vol] 90.8 fL Normal 81.0-99.0 [facility] Comment on above: Performed By: #### C BC #### [facility] [address] [place] [address] Dr. Abraham Harris MONO # 0.3 103/ul Normal 0.3-0.8 [facility] Comment on above: Performed By: #### C BC #### [facility] [address] [place] [address] Dr. Abraham Harris Monocytes/100 WBC (Bld) 5.0 % Normal 1.7-12.0 [facility] Comment on above: Performed By: #### C BC #### [facility] [address] [place] [address] Dr. Abraham Harris NEUT # 3.4 103/ul Normal 1.4-6.5 [facility] Comment on above: Performed By: #### C BC #### [facility] [address] [place] [address] Dr. Abraham Harris Neutrophils/100 WBC (Bld) 64.6 % Normal 43.0-75.0 [facility] Comment on above: Performed By: #### C BC #### [facility] [address] [place] [address] Dr. Abraham Harris Platelet mean volume (Bld) [Entitic vol] 9.9 fL Normal 9.5-13.5 [facility] Comment on above: Performed By: #### C BC #### [facility] [address] [place] [address] Dr. Abraham Harris PLT 229 103/ul Normal 150-450 [facility] Comment on above: Performed By: #### C BC #### [facility] [address] [place] [address] Dr. Abraham Harris RBC 4.66 106/ul Normal 4.20-5.40 [facility] Comment on above: Performed By: #### C BC #### [facility] [address] [place] [address] Dr. Abraham Harris WBC 5.2 103/ul Normal 4.0-11.0 [facility] Comment on above: Performed By: #### C BC #### [facility] [address] [place] [address] Dr. Abraham Harris FREE THYROXINE INDEX T7on FTI 3.64 Normal 1.30-4.50 [facility] Comment on above: Performed By: #### L IPID, CMP, TSH, T7 #### [facility] [address] [place] [address] Dr. Abraham Harris T3U 36.0 % Normal 30.0-39.0 [facility] Comment on above: Performed By: #### L IPID, CMP, TSH, T7 #### [facility] [address] [address] [address] Abraham Harris T4 [Mass/Vol] 10.10 ug/dL Normal 4.80-13.90 [facility] Comment on above: Performed By: #### L IPID, CMP, TSH, T7 #### [facility] [address] [address] [address] Abraham Harris GLYCOHEMOGLOBIN A1Con 2021 ADA RECOMMENDATION SEE BELOW Normal [facility] Comment on above: Result Comment: ADA RECOMMENDED LIMIT 4.0 - 6.0 ADA THERAPEUTIC TARGET < 7.0 ACTION SUGGESTED > 7.0 Performed By: #### A 1C #### [facility] [address] [address] [address] Abraham Harris Glucose [Mass/Vol] 111 mg/dL Normal [facility] Comment on above: Performed By: #### A 1C #### [facility] [address] [address] [address] Abraham Harris HbA1c (Bld) [Mass fraction] 5.5 % Normal 4.5-6.2 [facility] Comment on above: Performed By: #### A 1C #### [facility] [address] [address] [address] Abraham Harris IRONon 02-27-2022 Iron [Mass/Vol] 82.0 ug/dL Normal 50.0-170.0 [facility] Comment on above: Performed By: #### I MARCELLUS VITAD #### [facility] [address] [address] [address] Abraham Harris LIPID PROFILEon 02-27-2022 CHOL-HDL RATIO NORM SEE BELOW Normal [facility] Comment on above: Result Comment: 3.3 - 4.4 LOW RISK 4.4 - 7.1 AVERAGE RISK 7.1 - 11.0 MODERATE RISK >11.0 HIGH RISK Performed By: #### L IPID, CMP, TSH, T7 #### [facility] [address] [address] [address] Abraham Harris Cholesterol [Mass/Vol] 271 mg/dL Critically high <=200 [facility] Comment on above: Performed By: #### L IPID, CMP, TSH, T7 #### [facility] [address] [address] [address] Abraham Harris Cholesterol in HDL [Mass/Vol] 65 mg/dL Critically high 40-60 [facility] Comment on above: Performed By: #### L IPID, CMP, TSH, T7 #### [facility] [address] [address] [address] Abraham Harris Cholesterol in LDL [Mass/Vol] 177.4 mg/dL Normal [facility] Comment on above: Performed By: #### L IPID, CMP, TSH, T7 #### [facility] [address] [address] [address] Abraham Harris Cholesterol.total/Cho lesterol in HDL [Mass ratio] 4.2 {ratio} Normal [facility] Comment on above: Performed By: #### L IPID, CMP, TSH, T7 #### [facility] [address] [address] [address] Abraham Harris HDL NORMAL > or = 60 mg/dl - LO W CARDIOVASCULAR RISK <40 mg/dl - HIGH CARDIOVASCULAR RISK Normal [facility] Comment on above: Performed By: #### L IPID, CMP, TSH, T7 #### [facility] [address] [address] [address] Abraham Harris LDL CALC NORMAL SEE BELOW Normal [facility] Comment on above: Result Comment: <100 mg/dl OPTIMAL 100 - 129 mg/dl NEAR OR ABOVE OPTIMAL 130 - 159 mg/dl BORDERLINE HIGH 160 - 189 mg/dl HIGH >190 mg/dl VERY HIGH Performed By: #### L IPID, CMP, TSH, T7 #### [facility] [address] [address] [address] Abraham Harris Triglyceride [Mass/Vol] 143 mg/dL Normal <=150 [facility] Comment on above: Performed By: #### L IPID, CMP, TSH, T7 #### [facility] [address] [place] [address] Dr. Abraham Harris VLDL CALC 28.6 mg/dL Normal [facility] Comment on above: Performed By: #### L IPID, CMP, TSH, T7 #### [facility] [address] [place] [address] Dr. Abraham Harris PROF 14(COMP METB)on 022 Albumin [Mass/Vol] 3.9 g/dL Normal 3.4-5.0 [facility] Comment on above: Performed By: #### L IPID, CMP, TSH, T7 #### [facility] [address] [place] [address] Dr. Abraham Harris Albumin/Globulin [Mass ratio] 1.0 {ratio} Normal [facility] Comment on above: Performed By: #### L IPID, CMP, TSH, T7 #### [facility] [address] [place] [address] Dr. Abraham Harris ALP [Catalytic activity/Vol] 46 U/L Normal 46-116 [facility] Comment on above: Performed By: #### L IPID, CMP, TSH, T7 #### [facility] [address] [place] [address] Dr. Abraham Harris ALT [Catalytic activity/Vol] 14 U/L Normal 14-59 [facility] Comment on above: Performed By: #### L IPID, CMP, TSH, T7 #### [facility] [address] [place] [address] Dr. Abraham Harris Anion gap [Moles/Vol] 11.3 mmol/L Normal [facility] Comment on above: Performed By: #### L IPID, CMP, TSH, T7 #### [facility] [address] [place] [address] Dr. Abraham Harris AST [Catalytic activity/Vol] 12 U/L Critically low 15-37 [facility] Comment on above: Performed By: #### L IPID, CMP, TSH, T7 #### [facility] [address] [place] [address] Dr. Abraham Harris Bilirubin [Mass/Vol] 1.0 mg/dL Normal 0.2-1.0 [facility] Comment on above: Performed By: #### L IPID, CMP, TSH, T7 #### [facility] [address] [address] [address] Abraham Harris Calcium [Mass/Vol] 9.4 mg/dL Normal 8.5-10.1 [facility] Comment on above: Performed By: #### L IPID, CMP, TSH, T7 #### [facility] [address] [place] [address] Dr. Abraham Harris Chloride [Moles/Vol] 105 mmol/L Normal 98-107 [facility] Comment on above: Performed By: #### L IPID, CMP, TSH, T7 #### [facility] [address] [place] [address] Dr. Abraham Harris CO2 [Moles/Vol] 28.0 mmol/L Normal 21.0-32.0 [facility] Comment on above: Performed By: #### L IPID, CMP, TSH, T7 #### [facility] [address] [place] [address] Dr. Abraham Harris Creatinine [Mass/Vol] 0.85 mg/dL Normal 0.55-1.02 [facility] Comment on above: Performed By: #### L IPID, CMP, TSH, T7 #### [facility] [address] [place] [address] Dr. Abraham Harris EGFR-AF EGYPTIAN >60 Normal >=60 [facility] Comment on above: Performed By: #### L IPID, CMP, TSH, T7 #### [facility] [address] [place] [address] Dr. Abraham Harris EGFR-NON AF EGYPTIAN >60 Normal >=60 [facility] Comment on above: Performed By: #### L IPID, CMP, TSH, T7 #### [facility] [address] [place] [address] Dr. Abraham Harris Globulin (S) [Mass/Vol] 4.0 g/dL Normal [facility] Comment on above: Performed By: #### L IPID, CMP, TSH, T7 #### [facility] [address] [place] [address] Dr. Abraham Harris Glucose [Mass/Vol] 106 mg/dL Normal 74-106 [facility] Comment on above: Performed By: #### L IPID, CMP, TSH, T7 #### [facility] [address] [place] [address] Dr. Abraham Harris Potassium [Moles/Vol] 4.3 mmol/L Normal 3.5-5.1 [facility] Comment on above: Performed By: #### L IPID, CMP, TSH, T7 #### [facility] [address] [place] [address] Dr. Abraham Harris Protein [Mass/Vol] 7.9 g/dL Normal 6.4-8.2 [facility] Comment on above: Performed By: #### L IPID, CMP, TSH, T7 #### [facility] [address] [place] [address] Dr. Abraham Harris Sodium [Moles/Vol] 140 mmol/L Normal 136-145 [facility] Comment on above: Performed By: #### L IPID, CMP, TSH, T7 #### [facility] [address] [place] [address] Dr. Abraham Harris Urea nitrogen [Mass/Vol] 13.0 mg/dL Normal 7.0-18.0 [facility] Comment on above: Performed By: #### L IPID, CMP, TSH, T7 #### [facility] [address] [place] [address] Dr. Abraham Harris Urea nitrogen/Creatinine [Mass ratio] 15.3 mg/mg Normal [facility] Comment on above: Performed By: #### L IPID, CMP, TSH, T7 #### [facility] [address] [place] [address] Dr. Abraham Harris TSHon 02-27-2022 TSH 2.006 uIU/mL Normal 0.358-3.740 [facility] Comment on above: Performed By: #### L IPID, CMP, TSH, T7 #### [facility] [address] [address] [address] Abraham Harris VITAMIN D 25 OHon 02-27-2022 VIT D 25-OH 69.8 ng/mL Normal [facility] Comment on above: Performed By: #### I MARCELLUS, VITAD #### [facility] [address] [place], [place] [address] Dr. Abraham Harris VIT D RANGES SEE BELOW Normal [facility] Comment on above: Result Comment: <20 ng/mL Vit D deficient 20 - <30 ng/mL Vit D insufficient 30 - 100 ng/mL Vit D sufficient >100 ng/mL Potential Toxicity Performed By: #### I MARCELLUS, VITAD #### [facility] [address] [address] [address] Abraham Harris MG MAMM SCREEN 3D BEBETO CADon 04-02-2021 MG MAMM SCREEN 3D BEBETO CAD Patient: AKUA PEREZ Exam Date: 04/02/2021 : 1955 Gender:F Ordering : DR CARLA NESBITT . Admission #: [id number] Family : Order #: [id number] CLICK HERE TO VIEW EXAM RADIOLOGY REPORT [...] Treatments None Family Cancers None LOCATION: [facility] BREAST COMPOSITION: Heterogeneously dense,which may obscure small [...] MD on 04/02/2021 at 14:01 Normal [facility] Encounters Encounter Date Encounter Type Care Provider Facility Start: 02-27-2022 End: 02-28-2022 ambulatory CARLA NESBITT Facility:[facility] Start: 04-02-2021 End: 04-03-[address] CARLA NESBITT Facility:[facility] Payers Date Payer Category Payer Medicaid [id number] 1958 Medicare [id number] 1958 Unknown [id number] 1955 Unknown [id number] 1955 Unknown [id number] Summary Purpose Family History No Family History Records Found Advance Directives No Advanced Directives Records Found Additional Source Comments INFORMATION SOURCE (unrecogn ized section and content) DATE CREATED AUTHOR 03/04/2022 [facility] FOR RECORDS PERTAINING TO PATIENTS WHO ARE [...] BE BASED ON THE PRIMARY CLINICAL RECORDS. [facility] [facility]. provides no warranty or guarantee of the accuracy or completeness of information in this document.
[2024-11-05 11:37] LABS: Hematocrit 28.9 % (36.0-48.0); Immature Granulocytes Abs Auto 0.03 10^3/uL (0.00-0.03); Immature Granulocytes Pct Auto 0.4 % (0.0-0.5); Lymphocytes Absolute Auto 1.3 10^3/uL (1.2-3.8); Mean Corpuscular HGB Conc 26.0 g/dL (29.9-35.2); Mean Corpuscular Hemoglobin 19.9 pg (26.7-34.0); Mean Corpuscular Volume 76.9 fL (81.0-99.0); Platelet Count 594 10^3/uL (150-450); Red Blood Count 3.76 10^6/uL (4.20-5.40); White Blood Count 6.9 10^3/uL (4.0-11.0)
[2024-11-05 12:45] LABS: Hemoglobin 7.5 g/dL (12.0-16.0)
== END 2024-11-05 10:35 | disposition home or self-care (01) ==
LOC: LAB 10:41
PROVIDERS: PCP Family Medicine; Visit Provider Family Medicine
DX: D64.9 Anemia, unspecified (principal)
CPT/HCPCS: 36415

== ENCOUNTER 2024-12-29 11:54 | Outpatient (OUT) | payer MEDICARE, SELFPAY ==
--- OUTSIDE RECORDS SUMMARY | 2024-12-29 11:59 | XMS_ITS | CCD ---
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 Abraham Harris CBC AUTO DIFFon 02-27-2022 BASO # 0.1 103/ul Normal 0.0-0.1 [facility] Comment on above: Performed By: #### C BC #### [facility] [address] [place] [address] Dr. Abraham Harris Basophils/100 WBC (Bld) 1.7 % Normal 0.2-2.0 [facility] Comment on above: Performed By: #### C BC #### [facility] [address] [place] [address] Dr. Abraham Harris EO # 0.2 103/ul Normal 0.0-0.7 [facility] Comment on above: Performed By: #### C BC #### [facility] [address] [place] [address] Dr. Abraham Harris Eosinophils/100 WBC (Bld) 3.1 % Normal 0.9-7.0 [facility] Comment on above: Performed By: #### C BC #### [facility] [address] [place] [address] Dr. Abraham Harris Erythrocyte distribution width (RBC) [Ratio] 12.9 % Normal 11.0-15.0 [facility] Comment on above: Performed By: #### C BC #### [facility] [address] [place] [address] Dr. Abraham Harris Hematocrit (Bld) [Volume fraction] 42.3 % Normal 36.0-48.0 [facility] Comment on above: Performed By: #### C BC #### [facility] [address] [place] [address] Dr. Abraham Harris Hemoglobin (Bld) [Mass/Vol] 13.8 g/dL Normal 12.0-16.0 [facility] Comment on above: Performed By: #### C BC #### [facility] [address] [place] [address] Dr. Abraham Harris IG # 0.02 10e3/ul Normal 0.00-0.03 [facility] Comment on above: Performed By: #### C BC #### [facility] [address] [place] [address] Dr. Abraham Harris IG % 0.4 % Normal 0.0-0.5 [facility] Comment on above: Performed By: #### C BC #### [facility] [address] [place] [address] Dr. Abraham Harris LYMPH # 1.3 103/ul Normal 1.2-3.8 [facility] Comment on above: Performed By: #### C BC #### [facility] [address] [place] [address] Dr. Abraham Harris Lymphocytes/100 WBC (Bld) 25.2 % Normal 20.5-60.0 [facility] Comment on above: Performed By: #### C BC #### [facility] [address] [place] [address] Dr. Abraham Harris MANUAL DIFF REQ NO Normal [facility] Comment on above: Performed By: #### C BC #### [facility] [address] [place] [address] Dr. Abraham Harris MCH (RBC) [Entitic mass] 29.6 pg Normal 26.7-34.0 [facility] Comment on above: Performed By: #### C BC #### [facility] [address] [place] [address] Dr. Abraham Harris MCHC (RBC) [Mass/Vol] 32.6 g/dL Normal 29.9-35.2 [facility] Comment on above: Performed By: #### C BC #### [facility] [address] [place] [address] Dr. Abraham Harris MCV (RBC) [Entitic vol] 90.8 fL Normal 81.0-99.0 [facility] Comment on above: Performed By: #### C BC #### [facility] [address] [place] [address] Dr. Abraham Harris MONO # 0.3 103/ul Normal 0.3-0.8 [facility] Comment on above: Performed By: #### C BC #### [facility] [address] [place] [address] Dr. Abraham Harris Monocytes/100 WBC (Bld) 5.0 % Normal 1.7-12.0 [facility] Comment on above: Performed By: #### C BC #### [facility] [address] [place] [address] Dr. Abraham Harris NEUT # 3.4 103/ul Normal 1.4-6.5 [facility] Comment on above: Performed By: #### C BC #### [facility] [address] [place] [address] Dr. Abraham Harris Neutrophils/100 WBC (Bld) 64.6 % Normal 43.0-75.0 [facility] Comment on above: Performed By: #### C BC #### [facility] [address] [place] [address] Dr. Abraham Harris Platelet mean volume (Bld) [Entitic vol] 9.9 fL Normal 9.5-13.5 [facility] Comment on above: Performed By: #### C BC #### [facility] [address] [place] [address] Dr. Abraham Harris PLT 229 103/ul Normal 150-450 [facility] Comment on above: Performed By: #### C BC #### [facility] [address] [place] [address] Dr. Abraham Harris RBC 4.66 106/ul Normal 4.20-5.40 [facility] Comment on above: Performed By: #### C BC #### [facility] [address] [place] [address] Dr. Abraham Harris WBC 5.2 103/ul Normal 4.0-11.0 [facility] Comment on above: Performed By: #### C BC #### [facility] [address] [place] [address] Dr. Abraham Harris FREE THYROXINE INDEX T7on FTI 3.64 Normal 1.30-4.50 [facility] Comment on above: Performed By: #### L IPID, CMP, TSH, T7 #### [facility] [address] [place] [address] Dr. Abraham Harris T3U 36.0 % Normal 30.0-39.0 [facility] Comment on above: Performed By: #### L IPID, CMP, TSH, T7 #### [facility] [address] [address] [address] Abraham Harris T4 [Mass/Vol] 10.10 ug/dL Normal 4.80-13.90 [facility] Comment on above: Performed By: #### L IPID, CMP, TSH, T7 #### [facility] [address] [address] [address] Abraham Harris GLYCOHEMOGLOBIN A1Con 2021 ADA RECOMMENDATION SEE BELOW Normal [facility] Comment on above: Result Comment: ADA RECOMMENDED LIMIT 4.0 - 6.0 ADA THERAPEUTIC TARGET < 7.0 ACTION SUGGESTED > 7.0 Performed By: #### A 1C #### [facility] [address] [place] [address] Dr. Abraham Harris Glucose [Mass/Vol] 111 mg/dL Normal [facility] Comment on above: Performed By: #### A 1C #### [facility] [address] [address] [address] Abraham Harris HbA1c (Bld) [Mass fraction] 5.5 % Normal 4.5-6.2 [facility] Comment on above: Performed By: #### A 1C #### [facility] [address] [place] [address] Dr. Abraham Harris IRONon 02-27-2022 Iron [Mass/Vol] 82.0 ug/dL Normal 50.0-170.0 [facility] Comment on above: Performed By: #### I MARCELLUS, VITAD #### [facility] [address] [address] [address] Abraham Harris LIPID PROFILEon 02-27-2022 CHOL-HDL RATIO NORM SEE BELOW Normal [facility] Comment on above: Result Comment: 3.3 - 4.4 LOW RISK 4.4 - 7.1 AVERAGE RISK 7.1 - 11.0 MODERATE RISK >11.0 HIGH RISK Performed By: #### L IPID, CMP, TSH, T7 #### [facility] [address] [address] [address] Abraham Harris Cholesterol [Mass/Vol] 271 mg/dL Critically high <=200 [facility] Comment on above: Performed By: #### L IPID, CMP, TSH, T7 #### [facility] [address] [address] [address] Abraham Harris Cholesterol in HDL [Mass/Vol] 65 mg/dL Critically high 40-60 [facility] Comment on above: Performed By: #### L IPID, CMP, TSH, T7 #### [facility] [address] [address] [address] Abraham Harris Cholesterol in LDL [Mass/Vol] 177.4 mg/dL Normal [facility] Comment on above: Performed By: #### L IPID, CMP, TSH, T7 #### [facility] [address] [address] [address] Abraham Harris Cholesterol.total/Cho lesterol in HDL [Mass ratio] 4.2 {ratio} Normal [facility] Comment on above: Performed By: #### L IPID, CMP, TSH, T7 #### [facility] [address] [address] [address] Abraham Harris HDL NORMAL > or = 60 mg/dl - LO W CARDIOVASCULAR RISK <40 mg/dl - HIGH CARDIOVASCULAR RISK Normal [facility] Comment on above: Performed By: #### L IPID, CMP, TSH, T7 #### [facility] [address] [address] [address] Abraham Harris LDL CALC NORMAL SEE BELOW Normal [facility] Comment on above: Result Comment: <100 mg/dl OPTIMAL 100 - 129 mg/dl NEAR OR ABOVE OPTIMAL 130 - 159 mg/dl BORDERLINE HIGH 160 - 189 mg/dl HIGH >190 mg/dl VERY HIGH Performed By: #### L IPID, CMP, TSH, T7 #### [facility] [address] [address] [address] Abraham Harris Triglyceride [Mass/Vol] 143 mg/dL Normal <=150 [facility] Comment on above: Performed By: #### L IPID, CMP, TSH, T7 #### [facility] [address] [place] [address] Dr. Abraham Harris VLDL CALC 28.6 mg/dL Normal [facility] Comment on above: Performed By: #### L IPID, CMP, TSH, T7 #### [facility] [address] [place] [address] Dr. Abraham Harris PROF 14(COMP METB)on 022 Albumin [Mass/Vol] 3.9 g/dL Normal 3.4-5.0 [facility] Comment on above: Performed By: #### L IPID, CMP, TSH, T7 #### [facility] [address] [place] [address] Dr. Abraham Harris Albumin/Globulin [Mass ratio] 1.0 {ratio} Normal [facility] Comment on above: Performed By: #### L IPID, CMP, TSH, T7 #### [facility] [address] [place] [address] Dr. Abraham Harris ALP [Catalytic activity/Vol] 46 U/L Normal 46-116 [facility] Comment on above: Performed By: #### L IPID, CMP, TSH, T7 #### [facility] [address] [place] [address] Dr. Abraham Harris ALT [Catalytic activity/Vol] 14 U/L Normal 14-59 [facility] Comment on above: Performed By: #### L IPID, CMP, TSH, T7 #### [facility] [address] [place] [address] Dr. Abraham Harris Anion gap [Moles/Vol] 11.3 mmol/L Normal [facility] Comment on above: Performed By: #### L IPID, CMP, TSH, T7 #### [facility] [address] [place] [address] Dr. Abraham Harris AST [Catalytic activity/Vol] 12 U/L Critically low 15-37 [facility] Comment on above: Performed By: #### L IPID, CMP, TSH, T7 #### [facility] [address] [place] [address] Dr. Abraham Harris Bilirubin [Mass/Vol] 1.0 mg/dL Normal 0.2-1.0 [facility] Comment on above: Performed By: #### L IPID, CMP, TSH, T7 #### [facility] [address] [address] [address] Abraham Harris Calcium [Mass/Vol] 9.4 mg/dL Normal 8.5-10.1 [facility] Comment on above: Performed By: #### L IPID, CMP, TSH, T7 #### [facility] [address] [place] [address] Dr. Abraham Harris Chloride [Moles/Vol] 105 mmol/L Normal 98-107 [facility] Comment on above: Performed By: #### L IPID, CMP, TSH, T7 #### [facility] [address] [place] [address] Dr. Abraham Harris CO2 [Moles/Vol] 28.0 mmol/L Normal 21.0-32.0 [facility] Comment on above: Performed By: #### L IPID, CMP, TSH, T7 #### [facility] [address] [place] [address] Dr. Abraham Harris Creatinine [Mass/Vol] 0.85 mg/dL Normal 0.55-1.02 [facility] Comment on above: Performed By: #### L IPID, CMP, TSH, T7 #### [facility] [address] [place] [address] Dr. Abraham Harris EGFR-AF MOROCCAN >60 Normal >=60 [facility] Comment on above: Performed By: #### L IPID, CMP, TSH, T7 #### [facility] [address] [place] [address] Dr. Abraham Harris EGFR-NON AF MOROCCAN >60 Normal >=60 [facility] Comment on above: Performed By: #### L IPID, CMP, TSH, T7 #### [facility] [address] [place] [address] Dr. Abraham Harris Globulin (S) [Mass/Vol] 4.0 g/dL Normal [facility] Comment on above: Performed By: #### L IPID, CMP, TSH, T7 #### [facility] [address] [place] [address] Dr. Abraham Harris Glucose [Mass/Vol] 106 mg/dL Normal 74-106 [facility] Comment on above: Performed By: #### L IPID, CMP, TSH, T7 #### [facility] [address] [place] [address] Dr. Abraham Harris Potassium [Moles/Vol] 4.3 mmol/L Normal 3.5-5.1 [facility] Comment on above: Performed By: #### L IPID, CMP, TSH, T7 #### [facility] [address] [place] [address] Dr. Abraham Harris Protein [Mass/Vol] 7.9 g/dL Normal 6.4-8.2 [facility] Comment on above: Performed By: #### L IPID, CMP, TSH, T7 #### [facility] [address] [place] [address] Dr. Abraham Harris Sodium [Moles/Vol] 140 mmol/L Normal 136-145 [facility] Comment on above: Performed By: #### L IPID, CMP, TSH, T7 #### [facility] [address] [place] [address] Dr. Abraham Harris Urea nitrogen [Mass/Vol] 13.0 mg/dL Normal 7.0-18.0 [facility] Comment on above: Performed By: #### L IPID, CMP, TSH, T7 #### [facility] [address] [place] [address] Dr. Abraham Harris Urea nitrogen/Creatinine [Mass ratio] 15.3 mg/mg Normal [facility] Comment on above: Performed By: #### L IPID, CMP, TSH, T7 #### [facility] [address] [place] [address] Dr. Abraham Harris TSHon 02-27-2022 TSH 2.006 uIU/mL Normal 0.358-3.740 [facility] Comment on above: Performed By: #### L IPID, CMP, TSH, T7 #### [facility] [address] [address] [address] Abraham Harris VITAMIN D 25 OHon 02-27-2022 VIT D 25-OH 69.8 ng/mL Normal [facility] Comment on above: Performed By: #### I MARCELLUS, VITAD #### [facility] [address] [address] [address] Abraham Harris VIT D RANGES SEE BELOW Normal [facility] Comment on above: Result Comment: <20 ng/mL Vit D deficient 20 - <30 ng/mL Vit D insufficient 30 - 100 ng/mL Vit D sufficient >100 ng/mL Potential Toxicity Performed By: #### I MARCELLUS, VITAD #### [facility] [address] [address] [address] Abraham Harris MG MAMM SCREEN 3D BEBETO CADon 04-02-2021 MG MAMM SCREEN 3D BEBETO CAD Patient: AKUA PEREZ Exam Date: 04/02/2021 : 1955 Gender:F Ordering : DR CARLA NESBITT . Admission #: [id number] Family : Order #: [id number] CLICK HERE TO VIEW EXAM RADIOLOGY REPORT [...] Treatments None Family Cancers None LOCATION: [facility] BREAST COMPOSITION: Heterogeneously dense,which may obscure small [...] Yost MD on 04/02/2021 at 14:01 Normal [facility] Encounters Encounter Date Encounter Type Care Provider Facility Start: 11-08-2024 ambulatory Facility:[facility] Start: 02-27-2022 End: 02-28-[address] CARLA NESBITT Facility: Start: 04-02-2021 End: 04-03-2021 ambulatory CARLA ELSulaiman Facility:[facility] Payers Date Payer Category Payer Medicaid [id number] 1958 Medicare [id number] 1958 Unknown [id number] 1955 Unknown [id number] 1955 Unknown [id number] Summary Purpose Family History No Family History Records FoundNo Family History Records Found Advance Directives No Advanced Directives Records FoundNo Advanced Directives Records Found Additional Source Comments INFORMATION SOURCE (unrecogn ized section and content) DATE CREATED AUTHOR 03/04/2022 [facility] pital DATE CREATED AUTHOR AUTHOR'S ORGANIZ ATION 11/09/2024 [facility] FOR RECORDS PERTAINING TO PATIENTS WHO [...] BE BASED ON THE PRIMARY CLINICAL RECORDS. [employer] provides no warranty or guarantee of the accuracy or completeness of information in this document.
[2024-12-29 13:11] LABS: Free T3 1.30 pg/mL (2.18-3.98); Thyroid Stimulating Hormone 2.402 uIU/mL (0.358-3.740)
[2024-12-29 14:03] LABS: Iron 15.0 ug/dL (50.0-170.0)
[2024-12-29 14:14] LABS: Hematocrit 28.3 % (36.0-48.0); Hemoglobin 7.6 g/dL (12.0-16.0); Immature Granulocytes Abs Auto 0.04 10^3/uL (0.00-0.03); Immature Granulocytes Pct Auto 0.5 % (0.0-0.5); Lymphocytes Absolute Auto 1.0 10^3/uL (1.2-3.8); Mean Corpuscular HGB Conc 26.9 g/dL (29.9-35.2); Mean Corpuscular Hemoglobin 21.2 pg (26.7-34.0); Mean Corpuscular Volume 79.1 fL (81.0-99.0); Platelet Count 627 10^3/uL (150-450); Red Blood Count 3.58 10^6/uL (4.20-5.40); White Blood Count 8.5 10^3/uL (4.0-11.0)
[2024-12-29 14:37] LABS: Ferritin 1165.0 ng/mL (8.0-252.0)
== END 2024-12-29 11:55 | disposition home or self-care (01) ==
LOC: LAB 11:55
PROVIDERS: PCP Family Medicine; Visit Provider Family Medicine
DX: D64.9 Anemia, unspecified (principal); R53.83 Other fatigue
CPT/HCPCS: 36415; 82728; 83540; 84436; 84443; 84481

== ENCOUNTER 2025-01-17 13:34 | Inpatient (IN) | payer MEDICARE, SELFPAY ==
--- OUTSIDE RECORDS SUMMARY | 2024-11-08 08:25 | XMS_ITS ---
Author Name Auto Generated Organization [facility]LEMS No Problem Records Found PROCEDURES No Procedure Records Found RESULTS No Result Records Found ALLERGIES No Allergies Records Found ENCOUNTERS ADMIT/DISCHARGE ACCOUNT NUMBER ADMITTING ENCOUNTER CLASS LOC ATION SOURCE 11/08/2024 [id number] Ambulatory MIKEY Nixon g:MIKEY [place] [facility] PAYERS No Payer Records Found
--- OUTSIDE RECORDS SUMMARY | 2024-11-08 08:25 | XMS_ITS ---
Author Name Auto Generated Organization [facility] No Problem Records Found PROCEDURES No Procedure Records Found RESULTS No Result Records Found ALLERGIES No Allergies Records Found ENCOUNTERS ADMIT/DISCHARGE ACCOUNT NUMBER ADMITTING ENCOUNTER CLASS LOC ATION SOURCE 11/08/2024 [id number] Ambulatory MIKEY Nixon g:MIKEY [place] [facility] PAYERS No Payer Records Found
[2025-01-17] VITALS (58 sets, daily range): BP systolic 96–156; BP diastolic 60–87; PULSE 85–102; TEMP 36.5–36.7; O2SAT 88–98; BMI 23.8; BMI 51.1
--- NOTE | 2025-01-17 13:45 | ECG_ITS ---
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
--- NOTE | 2025-01-17 13:49 | ED_ITS ---
HPI HPI - General Adult General Chief complaint: Weakness Stated complaint: URINARY ISSUES Time Seen by Provider: 01/17/25 13:46 Source: patient Mode of arrival: ambulance Limitations: no limitations History of Present Illness HPI narrative: Patient is a 69-year-old female with a past medical history of hypothyroid and anemia that presents to the emergency department today via EMS with complaints of being found down yesterday, weakness, urinary incontinence, back pain, and failure to thrive. Patient is alert and oriented x 4 but is somewhat of a poor historian. Patient's son, who lives in [place], is at bedside and provides some of her history. Patient does live alone. Patient's son states that he had not heard from his mom in a few days and had called the police to do a well check yesterday. They were unable to enter the residence and was talking to her through a window. EMS was called and patient was found on the ground. Patient denies falling today on arrival. Last night she had declined transport to the hospital. Today her son arrived in town and was trying to get into the patient's home and the neighbor had to actually go through the window to open the door. At that time patient was complaining of back pain. Patient's son states that her house was very unkempt, multiple soiled garments laying around. There was dog feces all over the house with maggots. He also states that patient has lost about 100-140 pounds in the last year. He does not think that she is eating or drinking as she does not seem to be able to take care of herself. She does have someone that brings her food and water. The neighbor reports that she does not leave her house or let her dog out. Patient's son states that Dr. Menjivar had found she was anemic on the labs recently and she denied his treatment recommendation of a blood transfusion. She states she is on iron pills for this. Related Data Home Medications ?Medication ?Instructions ?Recorded ?Confirmed carvedilol 12.5 mg tablet 12.5 mg PO BID 01/17/2512/21 ferrous sulfate 325 mg (65 mg 325 mg PO BID 01/17/25 0 01/17/25 iron) tablet (FeroSul) levothyroxine 75 mcg tablet 75 mcg PO DAILY 01/17/25 0 01/17/25 liothyronine 25 mcg tablet 25 mcg PO DAILY 01/17/25 Allergies Allergy/AdvReac Type Severity Reaction Status Date / Time No Known Drug Allergies Allergy Verified 01/17/25 13:46 Opioid HPI Opioid Management Most Recent Opioid Data: Last Pain Scale 4 Today, 14:21 Review of Systems ROS Status of ROS 10 or more systems reviewed and unremark able except as noted in history and below [facility] Medical History (Updated 01/17/25 @ 17:07 by NICOLASA Mg) Depression ?F32.A - Depression, unspecified (ICD-10) Hypertension ?I10 - Essential (primary) hypertension (ICD-10) Anemia ?D64.9 - Anemia, unspecified (ICD-10) Hypothyroidism ?E03.9 - Hypothyroidism, unspecified (ICD-10) Surgical History (Updated 01/17/25 @ 16:34 by Monika Leong RN) H/O: hysterectomy ?Z90.710 - Acquired absence of both cervix and uterus (ICD-10) Exam Narrative Exam Narrative: General: No distress, age-appropriate, no signs of trauma Skin: Warm, dry, no pallor. No rash. No sacral erythema or wounds. Head: Normocephalic, atraumatic. Neck: Supple, non-tender. Eye: Pupils are equal, round and EOMI. No scleral icterus. Ears, Nose, Mouth, and Throat: No nasal mucosal hypertrophy. Oral mucosa is dry, no posterior oropharynx erythema, uvula is mid-line Cardiovascular: Regular Rate and Rhythm without murmur, gallop or rub. Respiratory: No accessory muscle use or respiratory distress. Lungs are clear to auscultation, no wheezing, rales or rhonchi Chest Wall: no tenderness Back: No midline thoracic or lumbar vertebral tenderness. No signs of trauma to the back. Musculoskeletal: Full ROM of all extremities, no calf or popliteal tenderness. GI: Abdomen is soft, non-distended, non tender to palpation. No masses appreciated. No rebound, guarding, or rigidity noted. Neurological: A&O x4. No cranial nerve dysfunction observed. No truncal brandi izzy. Moves all extremities. Sensation intact. Psychiatric: Cooperative and interactive. Normal mood and affect. Constitutional Vital Signs, click to edit/add: Last Vital Signs Temp 97.7 F 01/17/25 13:43 Pulse 90 01/17/25 14:20 Resp 22 H 01/17/25 14:20 BP 110/67 01/17/25 14:30 Pulse Ox 96 01/17/25 14:20 O2 Del Method Room Air 01/17/25 14:20 Documenting provider has reviewed patient's vital signs: yes Course Vital Signs Vital signs: Vital Signs Pulse Oximetry 96 01/17/25 13:42 Temperature 97.7 F 01/17/25 13:43 Pulse Rate 90 01/17/25 14:20 Respiratory Rate 22 H 01/17/25 14:20 Blood Pressure 110/67 01/17/25 14:30 Pulse Oximetry 96 01/17/25 14:20 Oxygen Delivery Method Room Air 01/17/25 14:20 Medical Decision Making MDM Narrative Medical decision making narrative: This is a 69-year-old female with a PMH of hypothyroid and anemia that presented to the emergency department via EMS with her son with concerns about her wellbeing at home, possible urinary tract infection, and found down last night. Patient's son lives in [place] and states that he had not heard from her in a few days and had called for a well check last night. EMS was eventually called and patient was found on the floor. She denied transport to the hospital at that time. Her son had drove here this morning and found her slumped in her chair with her home disheveled, he described it as soiled clothing everywhere, her dog had been urinating and defecating all over in the home. She was weak and seemed unable to get up from her chair or take care of herself. She had complained of back pain to the son and neighbor when they had to crawl through a window to get into her home. He does not believe she is eating or drinking enough as she has lost about 100-140 pounds per his estimation in the last year. Patient's son did call Dr. Menjivar this morning who told him to take her to the emergency department. She has declined blood transfusion recently with her anemia of 7.6 hemoglobin. On arrival patient is alert and oriented x 4, poor historian. She is incontinent of urine. There are no neurological deficits. She moves all extremities equally and has 5/5 strength in upper and lower extremities distally. Her vitals are hemodynamically stable. She is 96% O2 saturations on room air. She reports that her head hurts. EMS and patient's son reports that she was complaining of back pain at her house. She denies back pain here on arrival. EKG on arrival normal sinus rhythm, heart rate 98. No ST elevation or ischemic changes. Labs CBC: Hgb 7.6, stable compared to labs drawn in October?patient on iron pills, had previously denied transfusion that Dr. Menjivar recommended. WBC 13.4-afebrile on arrival, thrombocytosis, platelets 531, actually down from level on 12/29 was 627 CMP: BUN and creatinine elevated, 30/1.08 Hypercalcemia?13.7, adjusted for low albumin 1.5?calcium is 15.5 Hypercalcemia Urinary Incontinence - Ca 13.7, adjusted 15.5-1L NS given on arrival, continued at 200ml/hr - CT head notes that there is an extra-axial mass involving the left frontal lobe measuring 9 mm in greatest axial dimension with adjacent edema. May represent small meningioma. Brain MRI with and without contrast recommended. - CT Ab/Pelvis Large right renal mass suspicious for renal cell carcinoma measuring 11.0 x 9.2 x 9.1 cm. Multiple pulmonary nodules suspicious for metastatic disease. Scattered soft tissue nodularity largest measuring 1.8 cm in greatest axial dimension involving the right nathan. Metastatic disease is suspected. UA: Obtained through straight cath, large urine occult blood, small leuk esterase, negative for nitrites, trace urine bacteria, urine WBC 2?5, urine RBC 20?50 Anemia Hgb 7.6-stable from October-denied transfusion that PCP, Dr. Menjivar, had recommended. Started on iron pills. Dr. Corbin did speak with patient, son, and other family members about results. He did discuss admission for further treatment and evaluation. Patient is agreeable and asked that we updated Dr Menjivar. Dr Corbin did speak with Dr. Menjivar about patient's condition. I did speak with Dr. Parson, Hospitalist at 1700 to see if this was appropriate for admission here. He recommends transfer to [facility] for a complete oncologic workup. Hospitalist with [facility] was paged. I spoke with hospitalist at [facility] and the oncologist there do not do renal biopsies, he suggested a different hospital. I spoke with patient and updated her about this and she would like to try in a hospital in [place]. At 1739 the hospitalist at [facility] was paged. Spoke with Dr Chappell at [facility] about transfer and patient was accepted. They will call back with bed assignment. I did go to update patient that she was sleeping. No family at bedside currently. Patient's vitals have remained stable in the emergency department here. Her mental status remains unchanged. Patient will be transferred to [facility] for further evaluation and treatment for her hypercalcemia, chronic anemia, and further oncologic workup. Differential Diagnosis Differential Diagnosis: UTI, back fracture, failure to thrive Lab Data Lab results reviewed: Yes I reviewed the patient's lab results Labs: Lab Results 01/17/25 01/17/25 Range/Units 14:00 14:07 WBC 13.4 H (4.0-11.0) 10^3/uL RBC 3.64 L (4.20-5.40) 10^6/uL Hgb 7.6 L (12.0-16.0) g/dL Hct 28.6 L (36.0-48.0) % MCV 78.6 L (81.0-99.0) fL MCH 20.9 L (26.7-34.0) pg MCHC 26.6 L (29.9-35.2) g/dL RDW 18.4 H (11.0-15.0) % Plt Count 531 H (150-450) 10^3/uL MPV 8.0 L (9.5-13.5) fL Neut % (Auto) 84.8 H (43.0-75.0) % Lymph % (Auto) 8.0 L (20.5-60.0) % [place] % (Auto) 6.3 (1.7-12.0) % Eos % (Auto) 0.1 L (0.9-7.0) % Baso % (Auto) 0.3 (0.2-2.0) % Neut # (Auto) 11.4 H (1.4-6.5) 10^3/uL Lymph # (Auto) 1.1 L (1.2-3.8) 10^3/uL [place] # (Auto) 0.8 (0.3-0.8) 10^3/uL Eos # (Auto) 0.0 (0.0-0.7) 10^3/uL Baso # (Auto) 0.0 (0.0-0.1) 10^3/uL Abs Immat Gran (auto) 0.07 H (0.00-0.03) 10^3/uL Imm/Tot Granulo (auto) 0.5 (0.0-0.5) % Sodium 137 (136-145) mmol/L Potassium 3.6 (3.5-5.1) mmol/L Chloride 98 (98-107) mmol/L Carbon Dioxide 31.5 (21.0-32.0) mmol/L Anion Gap 11.1 BUN 30.0 H (7.0-18.0) mg/dL Creatinine 1.08 H (0.55-1.02) mg/dL Est GFR ( Amer) >60 (>=60 mL/min/1.73m^2) Est GFR (Non-Af Amer) 50 L (>=60 mL/min/1.73m^2) BUN/Creatinine Ratio 27.8 Glucose 112 H (74-106) mg/dL Calcium 13.7 H* (8.5-10.1) mg/dL Total Bilirubin 0.7 (0.2-1.0) mg/dL AST 23 (15-37) U/L ALT 23 (14-59) U/L Alkaline Phosphatase 115 (46-116) U/L Total Creatine Kinase 22 L (26-192) U/L Total Protein 7.8 (6.4-8.2) g/dL Albumin 1.5 L (3.4-5.0) g/dL Globulin 6.3 g/dL Albumin/Globulin Ratio 0.2 TSH 2.676 (0.358-3.740) uIU/mL Urine Color Lt. yellow (YELLOW) Urine Clarity Clear (CLEAR) Urine pH 5.5 (5.0-9.0) Ur Specific [place] 1.015 (1.005-1.025) Urine Protein Negative (NEG/TRACE) mg/dL Urine Glucose (UA) Negative (NEGATIVE) mg/dL Urine Ketones Negative (NEGATIVE) mg/dL Urine Occult Blood Large A (NEGATIVE) Urine Nitrite Negative (NEGATIVE) Urine Bilirubin Negative (NEGATIVE) Urine Urobilinogen 0.2 (0.2-1.0) EU/dL Ur Leukocyte Esterase Small A (NEGATIVE) Urine RBC 20-50 A (0-2) #/HPF Urine WBC 2-5 A (NONE SEEN) #/HPF Ur Squamous Epith Cells Few A (NONE/RARE) #/LPF Urine Crystals None seen (None Seen) #/HPF Urine Bacteria Trace A (NONE SEEN) #/HPF Urine Casts None seen (NONE SEEN) #/LPF Urine Mucus None seen (NONE SEEN) Ur Culture Indicated? Yes-[facility] [place] Imaging Data CT scan - abdomen: Attestation: I have reviewed the pertinent imaging results. Radiologist's impression: ITS Impressions Abdomen/Pelvis CT 01/17/25 14:11 IMPRESSION: Large right renal mass suspicious for renal cell carcinoma measuring 11.0 x 9.2 x 9.1 cm. Multiple pulmonary nodules suspicious for metastatic disease. Scattered soft tissue nodularity largest measuring 1.8 cm in greatest axial dimension involving the right nathan. Metastatic disease is suspected. Impression dictated by: Brandon Dougherty Jr., D.O. 01/17/2025 4:14 PM Dictation Location: [employer] Electronically authenticated by: [id number] Y Date: 01/17/2025 16:[address] 01/17/25 14:11 IMPRESSION: THERE APPEARS BE AN EXTRA-AXIAL MASS INVOLVING THE LEFT FRONTAL LOBE REGION MEASURING 9 MM IN GREATEST AXIAL DIMENSION WITH ADJACENT EDEMA. FINDING MAY REPRESENT A SMALL MENINGIOMA. THIS CAN BE FURTHER EVALUATED BY BRAIN MRI WITH AND WITHOUT IV CONTRAST. FOLLOW-UP IS RECOMMENDED GIVEN THE HISTORY OF TRAUMA. Impression dictated by: Brandon Dougherty Jr., D.O. 01/17/2025 4:10 PM Dictation Location: [employer] Electronically authenticated by: [id number] Y Date: 01/17/2025 16:10 ECG Data Attestation: ?I have reviewed the pertinent ECG results. Discharge Plan Discharge Chief Complaint: Weakness Clinical Impression: Hypercalcemia, Anemia, Kidney mass, Brain mass Patient Disposition: [facility] Time of Disposition Decision: 17:07
[2025-01-17] MEDS: 0.9 % SODIUM CHLORIDE 1,000 ML 1000 ML IV (14:11)
--- NOTE | 2025-01-17 14:11 | CT_ITS ---
The [address] [address] Patient Name: AKUA PEREZ MRN: [id number] date: 1955 Sex: F Assigned Patient Location: ER Current Patient Location: ER Accession/Order Number: [id number] Exam Date: 01/17/2025 14:55 Report Date: 01/17/2025 16:14 At the request of: TEO BALDWIN Procedure: CT abdomen pelvis wo con CT ABDOMEN AND PELVIS WITHOUT INTRAVENOUS CONTRAST: CLINICAL HISTORY: Fall COMPARISON: None TECHNIQUE: Spiral images were obtained through the abdomen and pelvis without intravenous contrast. This CT exam was performed using one or more following dose reduction techniques: Automated exposure control, adjustment of the mA and/or kV according to patient size, or use of iterative reconstruction technique. FINDINGS: Lung Bases: [Innumerable pulmonary nodules. Largest measuring 1 cm involving the left lower lobe.] Organs:Suboptimal evaluation due to lack of IV contrast. Cholelithiasis. Liver spleen pancreas and adrenal glands appear unremarkable. Left kidney appears unremarkable. A large mass is seen extending from the superior pole of the right kidney measuring 11.0 x 9.2 x 9.1 cm. Aorta appears normal in caliber.[ GI: Stomach is grossly unremarkable. Small bowel appears nondilated. Appendix is normal. No acute colonic abnormality.[ Pelvis:[Urinary bladder is grossly unremarkable. Uterus has been removed.] Peritoneum/Retroperitoneum:No free air or free fluid. No lymphadenopathy.[ Abd wall/Bones:Multiple scattered soft tissue nodules largest involving the right mons measuring 1.8 cm in greatest axial dimension. Osseous structures demonstrate degenerative change.[ CT/CT abdomen pelvis wo con IMPRESSION: Large right renal mass suspicious for renal cell carcinoma measuring 11.0 x 9.2 x 9.1 cm. Multiple pulmonary nodules suspicious for metastatic disease. Scattered soft tissue nodularity largest measuring 1.8 cm in greatest axial dimension involving the right nathan. Metastatic disease is suspected. Impression dictated by: Brandon Dougherty Jr., D.O. 01/17/2025 4:14 PM Dictation Location: [place] [address] Electronically authenticated by: [id number] Y Date: 01/17/2025 16:14
--- NOTE | 2025-01-17 14:11 | CT_ITS ---
The [address] [address] Patient Name: AKUA PEREZ MRN: [id number] date: 1955 Sex: F Assigned Patient Location: ER Current Patient Location: ER Accession/Order Number: [id number] Exam Date: 01/17/2025 14:55 Report Date: 01/17/2025 16:10 At the request of: TEO BALDWIN Procedure: CT head/brain wo con CT BRAIN WITHOUT CONTRAST: CLINICAL HISTORY: Fall COMPARISON: None TECHNIQUE: Contiguous axial unenhanced images were obtained through the brain. This CT exam was performed using one or more following dose reduction techniques: Automated exposure control, adjustment of the mA and/or kV according to patient size, or use of iterative reconstruction technique. FINDINGS: There is no evidence of midline shift, intra or extra-axial fluid collection, hemorrhage or CT evidence of stroke. There appears to be a extra-axial mass involving the left frontal lobe region best seen on axial image 5 measuring 9 mm in greatest axial dimension with adjacent edema. Posterior fossa appears unremarkable. Visualized intraorbital contents demonstrate no acute findings. Visualized paranasal sinuses are clear. The surrounding soft tissues are normal. CT/CT head/brain wo con IMPRESSION: THERE APPEARS BE AN EXTRA-AXIAL MASS INVOLVING THE LEFT FRONTAL LOBE REGION MEASURING 9 MM IN GREATEST AXIAL DIMENSION WITH ADJACENT EDEMA. FINDING MAY REPRESENT A SMALL MENINGIOMA. THIS CAN BE FURTHER EVALUATED BY BRAIN MRI WITH AND WITHOUT IV CONTRAST. FOLLOW-UP IS RECOMMENDED GIVEN THE HISTORY OF TRAUMA. Impression dictated by: Brandon Dougherty Jr., D.O. 01/17/2025 4:10 PM Dictation Location: [place] [address] Electronically authenticated by: [id number] Y Date: 01/17/2025 16:10
[2025-01-17 14:16] LABS: Hematocrit 28.6 % (36.0-48.0); Hemoglobin 7.6 g/dL (12.0-16.0); Immature Granulocytes Abs Auto 0.07 10^3/uL (0.00-0.03); Immature Granulocytes Pct Auto 0.5 % (0.0-0.5); Lymphocytes Absolute Auto 1.1 10^3/uL (1.2-3.8); Mean Corpuscular HGB Conc 26.6 g/dL (29.9-35.2); Mean Corpuscular Hemoglobin 20.9 pg (26.7-34.0); Mean Corpuscular Volume 78.6 fL (81.0-99.0); Platelet Count 531 10^3/uL (150-450); Red Blood Count 3.64 10^6/uL (4.20-5.40); White Blood Count 13.4 10^3/uL (4.0-11.0)
[2025-01-17 14:17] LABS: Glucose Urine UA NEGATIVE (NEGATIVE)
[2025-01-17 14:30] LABS: Cast Seen? NONE SEEN #/LPF (NONE SEEN); Crystals Seen? None Seen #/HPF (None Seen); Urine Culture Indicated YES-FRMC
[2025-01-17 14:33] LABS: Alanine Aminotransferase 23 U/L (14-59); Albumin Globulin Ratio 0.2; Albumin Level 1.5 g/dL (3.4-5.0); Alkaline Phosphatase 115 U/L (46-116); Anion Gap 11.1; Aspartate Amino Transferase 23 U/L (15-37); Blood Urea Nitrogen 30.0 mg/dL (7.0-18.0); Carbon Dioxide 31.5 mmol/L (21.0-32.0); Chloride 98 mmol/L (98-107); Estimated GFR (African America >60 (>=60 mL/min/1.73m^2); Estimated GFR (Non-African Ame 50 (>=60 mL/min/1.73m^2); Globulin 6.3 g/dL; Glucose 112 mg/dL (74-106); Potassium 3.6 mmol/L (3.5-5.1); Sodium 137 mmol/L (136-145); Total Protein 7.8 g/dL (6.4-8.2)
[2025-01-17 14:36] LABS: Calcium 13.7 mg/dL (8.5-10.1)
[2025-01-17 14:52] LABS: Thyroid Stimulating Hormone 2.676 uIU/mL (0.358-3.740)
[2025-01-17 14:55] LABS: Creatine Kinase 22 U/L (26-192)
[2025-01-17] MEDS: 0.9 % SODIUM CHLORIDE 1,000 ML 200 ML IV (15:28)
[2025-01-17] MEDS: 0.9 % SODIUM CHLORIDE 1,000 ML 125 ML IV (21:07)
[2025-01-17] MEDS: DEXAMETHASONE SOD PHOS (PF) 10 MG/ML VIAL IV (21:07)
[2025-01-18] VITALS (16 sets, daily range): BP systolic 100–115; BP diastolic 58–72; PULSE 67–88; TEMP 36–36.8; O2SAT 89–97
[2025-01-18] MEDS: LEVETIRACETAM 500 MG TABLET 1000 MG PO (00:25)
[2025-01-18] MEDS: POTASSIUM CHLORIDE 10 MEQ ER TABLET 20 MEQ PO (00:26)
[2025-01-18] MEDS: PANTOPRAZOLE SODIUM 40 MG TABLET.DR PO (00:26)
[2025-01-18] MEDS: DEXAMETHASONE SOD PHOS 4 MG/ML VIAL 6 MG IV ×2 (00:52→09:34)
[2025-01-18 05:40] LABS: Hematocrit 28.6 % (36.0-48.0); Hemoglobin 7.3 g/dL (12.0-16.0); Mean Corpuscular HGB Conc 25.5 g/dL (29.9-35.2); Mean Corpuscular Hemoglobin 20.4 pg (26.7-34.0); Mean Corpuscular Volume 79.9 fL (81.0-99.0); Platelet Count 478 10^3/uL (150-450); Red Blood Count 3.58 10^6/uL (4.20-5.40); White Blood Count 9.2 10^3/uL (4.0-11.0)
[2025-01-18 05:58] LABS: Alanine Aminotransferase 23 U/L (14-59); Albumin Globulin Ratio 0.2; Albumin Level 1.5 g/dL (3.4-5.0); Alkaline Phosphatase 110 U/L (46-116); Anion Gap 13.0; Aspartate Amino Transferase 19 U/L (15-37); Blood Urea Nitrogen 29.0 mg/dL (7.0-18.0); Calcium 12.9 mg/dL (8.5-10.1); Carbon Dioxide 26.9 mmol/L (21.0-32.0); Chloride 104 mmol/L (98-107); Estimated GFR (African America >60 (>=60 mL/min/1.73m^2); Estimated GFR (Non-African Ame 52 (>=60 mL/min/1.73m^2); Globulin 6.2 g/dL; Glucose 120 mg/dL (74-106); Magnesium 2.1 mg/dL (1.8-2.4); Potassium 3.9 mmol/L (3.5-5.1); Sodium 140 mmol/L (136-145); Total Protein 7.7 g/dL (6.4-8.2)
[2025-01-18 06:10] LABS: Iron 16.0 ug/dL (50.0-170.0); Percent Iron Saturation 15.0 %; Total Iron Binding Capacity 107.0 ug/dL (250.0-450.0)
[2025-01-18 06:15] LABS: Basophils Abs Manual 0.00 10^3/uL (0.00-0.10); Basophils Percent Manual 0.0 % (0.2-2.0); Eosinophils Absolute Manual 0.00 10^3/uL (0.00-0.70); Eosinophils Percent Manual 0.0 % (0.9-7.0); Lymphocytes Absolute Manual 0.27 10^3/uL (1.20-3.80); Lymphocytes Percent Manual 3.0 % (20.5-60.0); Monocytes Absolute Manual 0.09 10^3/uL (0.30-0.80); Monocytes Percent Manual 1.0 % (1.7-12.0); Myelocytes % Manual 1.0; Myelocytes Absolute Manual 0.09; Segmented Neut Absolute Manual 8.74 10^3/uL (1.4-6.5); Segmented Neutrophils % Manual 95.0 (43.0-75.0)
[2025-01-18 06:16] LABS: Hypochromasia 3+; Poikilocytosis 2+; Stomatocytes 2+
[2025-01-18 06:44] LABS: Ferritin 2142.0 ng/mL (8.0-252.0); Folate 79.00 ng/mL (8.60-58.90)
--- NOTE | 2025-01-18 09:22 | CM.NOTE ---
Rounded with . Possible transfer to [facility] once a bed becomes available. They are aware of the transfer and will call when a bed becomes available.
[2025-01-18] MEDS: LEVETIRACETAM 500 MG TABLET PO (09:34)
[2025-01-18] MEDS: 0.9 % SODIUM CHLORIDE 1,000 ML 75 ML IV (09:45)
--- NOTE | 2025-01-18 13:38 | SWNOTE1 ---
Pt being transferred to higher level of care.
--- NOTE | 2025-01-18 13:39 | SWNOTE1 ---
Important Message from [employer] reviewed and discussed with patient's son. Pt's son verbalized understanding and signed the form. Original given to patient's son and copy placed in patient?s chart.
--- NOTE | 2025-01-18 14:43 | MR_ITS ---
The [address] [address] Patient Name: AKUA PEREZ MRN: [id number] date: 1955 Sex: F Assigned Patient Location: MS Current Patient Location: MS Accession/Order Number: [id number] Exam Date: 01/18/2025 18:00 Report Date: 01/18/2025 19:57 At the request of: JANKI DAMNO MD Procedure: MR head/brain wo con MRI the Brain without contrast TECHNIQUE: Multiplanar T1 and T2-weighted imaging of the brain. HISTORY: Subsequent imaging. Brain lesion. COMPARISON: Head CT 01/17/2025 VENTRICLES: Unremarkable BRAIN VOLUME: Generalized atrophy BRAIN PARENCHYMAL SIGNAL INTENSITY: Subcortical regions of increased T2 signal intensity throughout the cerebral hemispheres. BLEED: None MASS EFFECT: No mass effect DIFFUSION RESTRICTION: Subtle region of diffusion restriction identified within the lesion in the high convexity of the right frontal lobe. May correlate with region of active demyelination. GRADIENT ECHO PARENCHYMAL SIGNAL LOSS: None MIDBRAIN: The midbrain structures are unremarkable. ESEQUIEL: Unremarkable MEDULLA: Unremarkable INTERNAL AUDITORY CANALS: Unremarkable SINUSES: Unremarkable ORBITS: Grossly unremarkable MASTOIDS: Unremarkable ENHANCEMENT: No contrast enhancement given MR/MR head/brain wo con IMPRESSION: Concern for focal regions of vasogenic edema in the subcortical regions throughout the cerebral hemispheres bilaterally. May be consideration for infectious or inflammatory etiology. Correlate with a immunocompromised status. Less likely differential demyelinating disease. Consider contrasted imaging when the patient clinically stable and to assess for metastatic disease Impression dictated by: Danish Reich M.D. 01/18/2025 7:57 PM Dictation Location: [email or web address] Electronically authenticated by: [id number] Y Date: 01/18/2025 19:57
--- NOTE | 2025-01-18 14:45 | PM.HP ---
HPI H&P: HPI History of Present Illness Chief complaint: Hypercalcemia anemia kidney mass gentry mass Narrative: Mrs Zimmer is a 69-year-old female who was brought to the emergency room by squad after she was found on the floor unable to stand up and ambulate for 8 to 10 hours. As per report the patient has been progressively weak over the last several days causing her to fall down. She fell down couple of days ago. EMS came and recommended her to be transported to ER but patient declined. Family reported worsening confusion and disorientation over the last several days. Patient and family reported that she had lost noticeable amount of weight over the last several months. Patient was found to have hypercalcemia. Imaging of the abdomen showed large renal mass. Pulmonary nodule suspecting metastasis and left frontal lobe lesion with edema suspecting metastasis. Patient was accepted to go to [facility] however there is no bed available yet therefore I will asked by emergency room team to admit her to the medical floor pending bed availability at [facility]. Patient is feeling better today. She is more awake than yesterday. She is more focused than yesterday. She denies any abdominal pain. She denies any chest pain. No cough or congestion. No shortness of breath. Opioid HPI Opioid Management Most Recent Pain and Opioid Data: Last Pain Scale 0 Today, 13:26 Last Pain Assessment Today, 00:00 Last ORT Total Score 0 01/17/25, 23:02 Last ORT Risk Category Low Risk 01/17/25, 23:02 Review of Systems ROS Status of ROS 10 or more systems reviewed and unremarkable except as noted in history and below [facility] Medical History (Updated 01/18/25 @ 14:49 by Savannah Parson MD) Depression ?F32.A - Depression, unspecified (ICD-10) Hypertension ?I10 - Essential (primary) hypertension (ICD-10) Anemia ?D64.9 - Anemia, unspecified (ICD-10) Hypothyroidism ?E03.9 - Hypothyroidism, unspecified (ICD-10) Surgical History (Updated 01/17/25 @ 16:34 by Monika Leong RN) H/O: hysterectomy ?Z90.710 - Acquired absence of both cervix and uterus (ICD-10) Social History (Updated 01/17/25 @ 23:02 by Adriana Mederos) Within the past year, how often did you have a drink containing alcohol: never Score interpretation: A score less than 3 is consistent with normal alcohol consumption. Smoking status: Former smoker Non-prescribed substance use: denies use Previous occupational history: retired Are you now , , , , never or living with a partner: don't know In a typical week, how many times do you talk on the telephone with family, friends, or neighbors: once per week How often do you get together with friends or relatives: once per week Little interest or pleasure in doing things: not at all Feeling down, depressed, or hopeless: not at all Feel stressed/tense/nervous/anxious/difficulty sleeping: not at all Do you think of yourself as: straight/heterosexual Gender Identity: female Meds Home Medications and Allergies Home Medications ?Medication ?Instructions ?Recorded ?Confirmed ?Type carvedilol 12.5 mg tablet 12.5 mg PO BID 01/17/25 01/17/25 History ferrous sulfate 325 mg (65 mg 325 mg PO BID 01/17/25 01/17/25 History iron) tablet (FeroSul) levothyroxine 75 mcg tablet 75 mcg PO DAILY 01/17/25 01/17/25 History liothyronine 25 mcg tablet 25 mcg PO DAILY 01/17/25 01/17/25 History Allergies Allergy/AdvReac Type Severity Reaction Status Date / Time No Known Drug Allergies Allergy Verified 01/17/25 13:46 Exam Narrative Exam Narrative: Patient is cachectic and frail in appearance. Pale skin buccal mucosa. Bitemporal muscle [place]. Upper and lower extremities muscle wasting and atrophy. Neck supple. Chest is clear, heart is regular. Abdomen is soft. Unable to feel the mass. Patient is awake but slow to process information and answer questions. Symmetrical motor and tone however patient is weak overall and needing help standing up and ambulating. Constitutional Vital Signs, click to edit/add: Last Vital Signs Temp 96.8 F L 01/18/25 11:16 Pulse 87 01/18/25 14:00 Resp 16 01/18/25 11:16 BP 111/67 01/18/25 11:16 Pulse Ox 96 01/18/25 11:16 O2 Del Method Nasal Cannula 01/18/25 11:16 O2 Flow Rate 2 01/18/25 11:16 Results Labs Labs: Short CBC 01/18/25 Range/Units 05:20 WBC 9.2 (4.0-11.0) 10^3/uL Hgb 7.3 L (12.0-16.0) g/dL Hct 28.6 L (36.0-48.0) % Plt Count 478 H (150-450) 10^3/uL BMP 01/18/25 05:20 Sodium 140 Potassium 3.9 Chloride 104 Carbon Dioxide 26.9 BUN 29.0 H Creatinine 1.06 H Glucose 120 H Calcium 12.9 H Cardiac Enzymes 01/17/25 Range/Units 14:00 Total Creatine Kinase 22 L (26-192) U/L Liver Function 01/18/25 Range/Units 05:20 Total Bilirubin 0.5 (0.2-1.0) mg/dL AST 19 (15-37) U/L ALT 23 (14-59) U/L Alkaline Phosphatase 110 (46-116) U/L Albumin 1.5 L (3.4-5.0) g/dL Assessment and Plan Assessment and Plan (1) Brain mass: (2) Kidney mass: (3) Anemia: (4) Hypercalcemia: (5) Pulmonary mass: (6) Severe protein-calorie malnutrition: (7) Muscle wasting: Plan Large renal mass measuring about 11 x 9 cm associated with pulmonary nodules and left frontal lesion suspicious of renal cell carcinoma with metastasis. Patient has lost noticeable amount of weight over the last 8 months according to her family Patient was accepted to go to [facility] for comprehensive oncological and neurosurgery care however no bed available. I had excepted her to be admitted to [facility] pending bed availability I started the patient on Decadron. I started the patient on Keppra for seizure prevention. I requested MRI of the brain Fall and seizure precautions. Avoid anticoagulation. Protein calorie malnutrition, severe degree. Frailty, muscle wasting, failure to thrive likely secondary to metastatic disease I started the patient on oral protein supplementation. Hypercalcemia likely secondary to bone mets I requested the PTH and parathyroid related hormone. I started the patient on IV fluid with reasonable correction of her hypercalcemia Hold off on bisphosphonate treatment oral calcitonin given the noticeable improvement of her hypercalcemia. Monitor kidney function. Encephalopathy secondary to hypercalcemia in the brain lesion and edema Treatment for hypocalcemia as listed above Continue Decadron for brain edema. MRI of the brain to take a better look at the extent of her brain lesion and surrounding edema. Anemia I requested iron study which came back consistent with anemia of chronic disease. Likely secondary to metastatic malignancy. DVT prophylaxis Avoid pharmacological prophylactic measures due to increase risk of brain bleed. I discussed her case with her son at the bedside.
--- NOTE | 2025-01-18 22:59 | PC.NURSE ---
pt checked and changed brief. report given to [facility]. report called to nurse at [facility]. pt discharged at 2114.
[2025-01-19 04:07] LABS: Vitamin B12 >2000 pg/mL (232-1245)
--- NOTE | 2025-01-19 06:38 | PM.DS1 ---
DS: Providers Provider Date of admission: 01/18/25 09:01 Primary care physician: Tahir Menjivar MD Anticipated date of discharge: 01/18/25 DS: Diagnosis Discharge Diagnosis (1) Brain mass: (2) Kidney mass: (3) Anemia: (4) Hypercalcemia: (5) Pulmonary mass: (6) Severe protein-calorie malnutrition: (7) Muscle wasting: Plan As listed above, below and others that are not listed DS: Summary Hospital Course Hospital Course: Mrs. Zimmer is a 69-year-old female who was brought into the emergency room after she had been progressively weak and falling down. She was found to have the following medical issues I determined that patient would need comprehensive medical care is not available at [facility] due to the complexity of her findings. Patient was accepted to be transferred to [facility] however there is no bed available therefore excepted her to be admitted to the medical floor pending transfer to [facility]. Large renal mass measuring about 11 x 9 cm associated with pulmonary nodules and left frontal lesion suspicious of renal cell carcinoma with metastasis. Patient has lost noticeable amount of weight over the last 8 months according to her family Patient was accepted to go to [facility] for comprehensive oncological and neurosurgery care however no bed available. I had excepted her to be admitted to [facility] pending bed availability I started the patient on Decadron. I started the patient on Keppra for seizure prevention. I requested MRI of the brain. This came back positive for cerebral edema. Could be related to malignancy however radiologist indicated multiple differential diagnoses that would need further investigation by neurology and neurosurgery team. She may need to have an LP. Fall and seizure precautions. Avoid anticoagulation due to increased risk of cerebral bleed. Protein calorie malnutrition, severe degree. Frailty, muscle wasting, failure to thrive likely secondary to metastatic disease I started the patient on oral protein supplementation. Hypercalcemia likely secondary to bone mets I requested the PTH and parathyroid related hormone. I started the patient on IV fluid with reasonable correction of her hypercalcemia Hold off on bisphosphonate treatment oral calcitonin given the noticeable improvement of her hypercalcemia. Monitor kidney function. I specifically decided not to use large amount of fluid due to significant and significant increased risk for third spacing and pulmonary edema that may lead to pulmonary compromise. Encephalopathy secondary to hypercalcemia in the brain lesion and edema Treatment for hypocalcemia as listed above Continue Decadron for brain edema. MRI of the brain to take a better look at the extent of her brain lesion and surrounding edema. Anemia I requested iron study which came back consistent with anemia of chronic disease. Likely secondary to metastatic malignancy. DVT prophylaxis Avoid pharmacological prophylactic measures due to increase risk of brain bleed. I discussed her case with her son at the bedside. Overall patient has poor prognosis given the significance of her metastatic disease and metastatic burden. Patient was transferred to [facility] in stable condition. Time Spent with Patient Time attestation: Total time spent providing and/or coordinating discharge services: Exam Constitutional Vital Signs, click to edit/add: Last Vital Signs Temp 97.6 F 01/18/25 19:36 Pulse 83 01/18/25 19:52 Resp 18 01/18/25 19:36 BP 100/65 01/18/25 19:36 Pulse Ox 96 01/18/25 19:36 O2 Del Method Nasal Cannula 01/18/25 19:36 O2 Flow Rate 2 01/18/25 19:36 DS: Data Data Completed and Pending Labs on day of discharge: Labs from last 24 hours 01/18/25 01/17/25 05:20 14:00 Ionized Calcium 7.9 H Ferritin 2142.0 H Vitamin B12 >2000 H Vitamin D Level 92.7 Folate 79.00 H Preliminary micro results at discharge 01/17/25 14:07 Urine Culture - Preliminary Urine Catheterized Pending - Specimen sent to [facility] Discharge Plan Discharge Disposition: [facility] Condition: Fair Discharge Date/Time: 01/18/25 21:15 Discharge Location: [facility]
== END 2025-01-18 21:15 | disposition short-term general hospital (02) | DRG 686 ==
LOC: ER 21:39 → MS 22:52
PROVIDERS: Physician Assistant; Admitting Provider Internal Medicine; Emergency Provider Student in an Organized Health Care Education/Training Program; PCP Family Medicine; Visit Provider Internal Medicine
DX: C64.9 Malignant neoplasm of unspecified kidney, except renal pelvis (principal); E43 Unspecified severe protein-calorie malnutrition; R64 Cachexia; Z68.43 Body mass index [BMI] 50.0-59.9, adult; G93.40 Encephalopathy, unspecified; C79.51 Secondary malignant neoplasm of bone; E83.52 Hypercalcemia; Z91.81 History of falling; I10 Essential (primary) hypertension; F32.A Depression, unspecified; E03.9 Hypothyroidism, unspecified; Z90.710 Acquired absence of both cervix and uterus; Z87.891 Personal history of nicotine dependence; Z79.890 Hormone replacement therapy; R54 Age-related physical debility; M62.59 Muscle wasting and atrophy, not elsewhere classified, multiple sites; R91.8 Other nonspecific abnormal finding of lung field; G93.9 Disorder of brain, unspecified; R62.7 Adult failure to thrive; R60.0 Localized edema; D63.0 Anemia in neoplastic disease
CPT/HCPCS: 36415; 70450; 70551; 74176; 80053; 81001; 82306; 82330; 82397; 82550; 82607; 82728; 82746; 83540; 83550; 83735; 83970; 84100; 84443; 85007; 85025; 85027; 86850; 86900; 86901; 87086; 93005; 94761; 96374; 99285; G0378; J1100